=== PATIENT | female | born 1980 | race Caucasian/White ===

== ENCOUNTER 2024-10-20 08:30 | Day surgery (SDC) | payer OTHER, BC ==
[2024-10-07 15:45] VITALS: BP 98/68
[~2024-10-20] VITALS: Ht 160 cm; Wt 71.4 kg
[~2024-10-20 08:30] MED LIST: CALCIUM + D SO1 EACH PO; CEFAZOLIN SODIUM 2 GM/20 ML SYR IV SCH; IBLOOD GLUCOSE TEST STRIP 1 EA TEST VI PRN; LACTATED RINGER'S 1,000 ML IV SCH; LAXA CLEAR1530 GM; LEXAPRO10 MG PO; LIDOCAINE HCL 1% 5 ML SDV INJ ONE; MULTI VITAMIN1 EACH PO; ZEPBOUND5 MG/0.5 M SQ
[2024-10-20 08:38] VITALS: BP 93/64
[2024-10-20] MEDS ORDERED: ondansetron HCL 4 MG/2 ML VIAL ONE (08:41)
[2024-10-20] MEDS ORDERED: LACTATED RINGER'S 1,000 ML IV ONE (08:41)
[2024-10-20] MEDS ORDERED: fentaNYL citrate 100 MCG/2 ML VIAL ONE (08:41)
[2024-10-20] MEDS ORDERED: OMEPRAZOLE20 MG PO (08:41)
[2024-10-20] MEDS ORDERED: FAMOTIDINE 20 MG/ 2 ML VIAL ONE (08:41)
[2024-10-20] MEDS ORDERED: propofoL 200 MG/20 ML VIAL ONE (08:41)
[2024-10-20] MEDS ORDERED: METOCLOPRAMIDE HCL 10 MG/2 ML SDV ONE (08:41)
[2024-10-20] MEDS ORDERED: MIDAZOLAM HCL 2 MG/2 ML VIAL ONE (08:41)
[2024-10-20] MEDS ORDERED: DEXAMETHASONE SOD PHOS 4 MG/ML VIAL ONE (08:41)
[2024-10-20] MEDS ORDERED: KETOROLAC TROMETHAMINE 30 MG/ML VIAL ONE (08:41)
[2024-10-20] MEDS ORDERED: SEVOFLURANE 250 ML BTL INH ONE (08:48)
[2024-10-20] MEDS ORDERED: ePHEDrine sulfate 50 MG/ML AMP ONE (09:30)
[2024-10-20] MEDS ORDERED: ATROPINE SULFATE 1 MG/ML VIAL ONE (09:36)
[2024-10-20] MEDS ORDERED: ACETAMINOPHEN 1,000 MG/100 ML VIAL ONE (09:50)
[2024-10-20] MEDS ORDERED: NALOXONE HCL 0.4 MG SYR IV PRN ×2 (10:00→10:15)
[2024-10-20] MEDS ORDERED: HYDROCODONE/ACETA 5/325 TAB PO PRN (10:00)
--- NOTE | 2024-10-20 10:13 | NUR ---
10/20/24 Nadja Da Silva OXYGEN SATURATION REMAINS 100% ON 10L VIA MASK. OXYGEN IS REMOVED. PATIENT'S TEETH ARE CHATTERING. SHE REPORTS BEING COLD. WARM BLANKET IS GIVEN. KEVON HUGGER ON WARM. PATIENT DENIES PAIN AND NAUSEA.
[2024-10-20] MEDS ORDERED: ondansetron HCL 4 MG/2 ML VIAL IV PRN (10:15)
[2024-10-20] MEDS ORDERED: PROCHLORPERAZINE EDISYLATE 10 MG/2 ML VIAL IV PRN (10:15)
[2024-10-20] MEDS ORDERED: MORPHINE SULFATE 10 MG/ML VIAL IV PRN (10:15)
[2024-10-20] MEDS ORDERED: IBLOOD GLUCOSE TEST STRIP 1 EA TEST VI PRN (10:15)
[2024-10-20] MEDS ORDERED: METOCLOPRAMIDE HCL 10 MG/2 ML SDV IV PRN (10:15)
[2024-10-20] MEDS ORDERED: droPERidol 5 MG/2 ML VIAL IV PRN (10:15)
[2024-10-20] MEDS ORDERED: fentaNYL citrate 50 MCG/ML SDV IV PRN (10:15)
[2024-10-20 10:42] VITALS: BP 99/68
--- NOTE | 2024-10-20 11:09 | NUR ---
1035 PT RETURNS TO FROM PACU. PT AWAKE AND ALERT ASKING FOR WATER. PT TAKING SIPS OF WATER TOLERATES WELL. PT REPORTS PAIN IS VERY MINIMAL STATES ITS 4/10 AND TOLERABLE. PT GIVEN JELLO SHE TOLERATES WELL. PT GIVEN WARM BLANKETS AND CALL LIGHT WITHIN REACH. HER IS AT BEDSIDE. 1110 PT GIVEN REFILL ON WATER AND CRACKERS. SHE DENIES NAUSEA.
[2024-10-20 11:32] VITALS: BP 94/67
--- NOTE | 2024-10-20 11:37 | NUR ---
PT UP TO BATHROOM AMBULTES WITHOUT ASSIST. PT REPORTS LOW BP IS HER BASELINE. PT WAS ABLE TO VOID 500ML OF CLEAR URINE, THERE WAS MINIMAL AMOUT OF BLEEDING THE TOILET. AND SCANT AMOUNT OF BLOOD ON DAE PAD.
--- NOTE | 2024-10-20 12:00 | NUR ---
1130 DISCHARGE INSTRUCTIONS GIVEN TO PT AND BOTH VOICED UNDERSTANDING. PT ABLE TO DRESS HERSELF WITHOUT ASSIST. PT DENIES PAIN AND NAUSEA. PT REPORTS READINESS TO GO HOME. PT WHEELED OUT TO CAR BY RN.
== END 2024-10-20 17:00 | disposition home or self-care (01) ==
LOC: OPS 08:30 → DS 08:30 → OPS 09:50 → DS 09:50 → OPS 17:00
PROVIDERS: ATTEND Obstetrics & Gynecology
PROC: 3E1M38Z Irrigation of Peritoneal Cavity using Irrigating Substance, Percutaneous Approach (ICD-10-PCS; principal; 2024-10-20 09:50)
DX: K28.5 Chronic or unspecified gastrojejunal ulcer with perforation (principal); Z32.02 Encounter for pregnancy test, result negative; Z79.899 Other long term (current) drug therapy; Z87.891 Personal history of nicotine dependence; Z98.84 Bariatric surgery status
CPT/HCPCS: 00952; J0131; J0461; J0690; J1100; J1885; J2250; J2405; J2704; J2765; J3010; J7121

== ENCOUNTER 2024-10-25 17:51 | Inpatient (IN) | payer OTHER, BC ==
[~2024-10-25] VITALS: Ht 160 cm; Wt 71.4 kg
[~2024-10-25 17:51] MED LIST changes: -CEFAZOLIN SODIUM 2 GM/20 ML SYR IV SCH; -IBLOOD GLUCOSE TEST STRIP 1 EA TEST VI PRN; -LACTATED RINGER'S 1,000 ML IV SCH; -LIDOCAINE HCL 1% 5 ML SDV INJ ONE; +OMEPRAZOLE20 MG PO
[2024-10-25] MEDS ORDERED: FAMOTIDINE 20 MG/ 2 ML VIAL IV ONE (20:15)
[2024-10-25] MEDS ORDERED: HYDROmorphone HCL 1 MG/ML SYR IV PRN (20:15)
[2024-10-25] MEDS ORDERED: LIDOCAINE & ANTACID 35 ML BTL PO ONE (20:15)
[2024-10-25] MEDS ORDERED: ondansetron HCL 4 MG/2 ML VIAL IV ONE (20:15)
[2024-10-25 20:41] LABS: BASOPHILS 0.1 % (0-2); EOSINOPHILS 0.2 % (0-6); HEMATOCRIT 40.5 % (35.0-50.0); HEMOGLOBIN 13.9 g/dL (12.0-18.0); LYMPHOCYTES 6.8 % (24-44); MCH 29.2 (27-36); MCHC 34.3 g/dl (30-36); MCV 85.1 fl (81-99); MONOCYTES 3.3 % (0-12); NEUTROPHILS 89.6 % (39-80); PLATELET COUNT 221 K/uL (140-440); RBC 4.76 M/ul (4.3-5.7); RDW 13.9 (10.5-15.0)
[2024-10-25 20:56] LABS: ALBUMIN 4.3 g/dL (3.4-5.0); ALBUMIN/GLOBULIN RATIO 1.34 (1.1-2.4); ANION GAP 10.2 (7-21); BILIRUBIN, TOTAL 0.3 mg/dL (0.2-1.0); BUN/CREATININE RATIO 22.5 (6.0-28.6); CALCIUM 8.9 mg/dL (8.5-10.1); CREATININE, SERUM 0.8 mg/dL (0.55-1.02); POTASSIUM 4.2 mmol/L (3.5-5.1); PROTEIN, TOTAL 7.5 g/dL (6.4-8.2)
[2024-10-25 21:56] LABS: BILIRUBIN, URINE NEGATIVE (negative); BLOOD/HGB, URINE NEGATIVE (Negative); KETONE, URINE NEGATIVE (Negative); LEUK ESTERASE, URINE NEGATIVE (negative); NITRITE, URINE NEGATIVE (negative)
[2024-10-25] MEDS ORDERED: LACTATED RINGER'S 1,000 ML IV SCH (23:00)
[2024-10-25] MEDS ORDERED: PANTOPRAZOLE SODIUM 40 MG/10 ML VIAL IV ONE (23:00)
[2024-10-25] MEDS ORDERED: MEROPENEM 2,000 MG in SODIUM CHLORIDE 0.9% 250 ML IV ONE ×2 (23:15→23:45)
[2024-10-25] MEDS ORDERED: MEROPENEM 1,000 MG VIAL IV ONE ×2 (23:22→23:49)
[2024-10-26] VITALS (15 sets, daily range): BP systolic 91–116; BP diastolic 54–74
[2024-10-26] MEDS ORDERED: BUPIVACAINE HCL 0.25% 50 ML MDV ONE (00:14)
[2024-10-26] MEDS ORDERED: propofoL 200 MG/20 ML VIAL ONE (00:32)
[2024-10-26] MEDS ORDERED: LIDOCAINE HCL 1% 30 ML SDV ONE (00:32)
[2024-10-26] MEDS ORDERED: KETOROLAC TROMETHAMINE 30 MG/ML VIAL ONE (00:32)
[2024-10-26] MEDS ORDERED: SUGAMMADEX SODIUM 200 MG/2 ML ML ONE (00:32)
[2024-10-26] MEDS ORDERED: MIDAZOLAM HCL 2 MG/2 ML VIAL ONE (00:32)
[2024-10-26] MEDS ORDERED: ROCURONIUM BROMIDE 50 MG/5 ML SYR ONE (00:32)
[2024-10-26] MEDS ORDERED: ondansetron HCL 4 MG/2 ML VIAL ONE (00:32)
[2024-10-26] MEDS ORDERED: LIDOCAINE HCL 2% 5 ML SDV ONE (00:32)
[2024-10-26] MEDS ORDERED: DEXAMETHASONE SOD PHOS 4 MG/ML VIAL ONE (00:32)
[2024-10-26] MEDS ORDERED: fentaNYL citrate 100 MCG/2 ML VIAL ONE (00:33)
[2024-10-26] MEDS ORDERED: LACTATED RINGER'S 1,000 ML IV ONE ×2 (00:45→18:30)
[2024-10-26] MEDS ORDERED: ACETAMINOPHEN 1,000 MG/100 ML VIAL ONE (00:46)
[2024-10-26] MEDS ORDERED: KETAMINE in NS 50 MG/5 ML SYR ONE (00:48)
[2024-10-26] MEDS ORDERED: MORPHINE SULFATE 10 MG/ML VIAL IV PRN (03:00)
[2024-10-26] MEDS ORDERED: ondansetron HCL 4 MG/2 ML VIAL IV PRN (03:00)
[2024-10-26] MEDS ORDERED: LACTATED RINGER'S 1,000 ML IV SCH (03:00)
[2024-10-26] MEDS ORDERED: PROCHLORPERAZINE EDISYLATE 10 MG/2 ML VIAL IV PRN (03:00)
--- NOTE | 2024-10-26 03:00 | NUR ---
PT ARRIVES FROM PACU, REPORT RECEIVED FROM CHANELLE CATHERINE. PT IS AWAKE AND ORIENTED, ASKING APPROPRIATE QUESTIONS REGARDING HER SURGERY. SHE DENIES NEED FOR PAIN MEDICATION AT THIS TIME, REPORTS THAT HER NOSE IS HURTING AND THROAT. NGT IN PLACE, ATTACHED TO LIWS WITH RETURN OF SMALL AMOUNT OF RED DRAINAGE. JUAREZ IN PLACE DRAINING LARGE AMOUNT OF S/S FLUID. PTS VS ARE WNL, SHE DENIES SOB OR NAUSEA, CALL LIGHT IN HAND.
--- NOTE | 2024-10-26 03:04 | NUR ---
10/26/24 0304 Lillian Jiang 0245-PT ARRIVES TO PACU VIA STRETCHER, RESTING SEMI FOWLERS, PT REACTIVE TO VERBAL AND TACTILE STIMULI BUT RESTS W/ EYES CLOSED, RR EVEN AND UNLABORED, VSS ON 6L VIA MASK. 0300-PT OPENS EYES TO VOICE, ANSWERS YES OR NO QUESTIONS W/ NODDING OF HEAD, DENIES PAIN OR NAUSEA.
[2024-10-26] MEDS ORDERED: SUCRALFATE 1 GM TAB PT SCH (03:15)
[2024-10-26] MEDS ORDERED: SODIUM CHLORIDE 0.9% 100 ML IV ONE (04:13)
--- NOTE | 2024-10-26 04:35 | NUR ---
IN TO CHECK ON PT, SHE IS AWAKE IN BED AND REPORTS SHE IS NOW HAVING ABD PAIN 01/05. PRN DILAUDID 0.5MG IV GIVEN. PT REPORTS PAIN RELIEF VERY QUICKLY AFTER MED GIVEN AND STATES SHE IS NOW COMFORTABLE. SHE IS ABLE TO HAVE A CONVERSATION AND ANSWER QUESTIONS AND HAS NO FURTHER REQUESTS.
[2024-10-26 05:44] LABS: BASOPHILS 0.1 % (0-2); HEMOGLOBIN 11.3 g/dL (12.0-18.0); LYMPHOCYTES 3.8 % (24-44); MCH 29.1 (27-36); MCHC 34.2 g/dl (30-36); MCV 85.1 fl (81-99); MONOCYTES 2.9 % (0-12); NEUTROPHILS 93.2 % (39-80); PLATELET COUNT 157 K/uL (140-440); RBC 3.88 M/ul (4.3-5.7); RDW 13.9 (10.5-15.0)
[2024-10-26] MEDS ORDERED: MEROPENEM 500 MG in SODIUM CHLORIDE 0.9% 100 ML IV SCH (06:00)
[2024-10-26] MEDS ORDERED: MEROPENEM 1,000 MG in SODIUM CHLORIDE 0.9% 100 ML IV SCH (06:00)
--- NOTE | 2024-10-26 06:00 | NUR ---
IN TO HANG ABX, PT REPORTS SHE IS COMFORTABLE, AWAKENS EASILY. NGT IN PLACE, JUAREZ IN PLACE CONT TO DRAIN S/S FLUID.
--- NOTE | 2024-10-26 07:30 | NUR ---
PT C/O CHEST BURNING, CARAFATE AND OTHER MEDS GIVEN A LITTLE EARLY. PT DOES REPORT IMMEDIATE RELIEF AFTER CARAFATE WAS ADMINISTERED. IN TO SEE PT. PT DENIES ABD PAIN AT THIS TIME.
--- NOTE | 2024-10-26 08:30 | NUR ---
Assessment complete. Patient resting in bed, awakens to voice. Stephen in to round. Patient states pain at 6/10, given IV PRN. NGT in place to LIWS. LSC, on RA. HRR, bowel tones active. lap sites x3, c/d/i with steri strips. Duncan drain noted to have serous fluid, emptied of 25 at this time. Pt educated about post op expectations, agreeable to POC. SCDs in place.
[2024-10-26] MEDS ORDERED: PANTOPRAZOLE SODIUM 40 MG/10 ML VIAL IV SCH (09:00)
[2024-10-26] MEDS ORDERED: FAMOTIDINE 20 MG/ 2 ML VIAL IV SCH (09:00)
--- NOTE | 2024-10-26 09:45 | NUR ---
INTO SEE PATIENT. PATIENT PERSONAL HEALTH INFORMATION REVIEWED. PATIENT JUST RECENTLY SOLD HOUSE AND IS LIVING ON SONS PROPERTY WITH IN A FIFTH WHEEL TRAILER. PATIENT HAS THREE STEPS TO GET INTO AND TWO STEPS IN THE [place] DENIES PROBLEMS GETTING AROUND. DOES NOT USE DME AT HOME. PATIENT DENIES DIFFCULTY PAYING UTLITIES OR OBTAINING FOOD. NO FUTHER CM NEEDS.
--- NOTE | 2024-10-26 11:17 | NUR ---
UR CLINICAL REVIEW: VJ, MEETS INPT FOR UPPER GI BLEED. SURGICAL INTERVENTION, POSITIVE GI BLEED ON CT, IV ANTIBIOTICS, IV ANALGESICS, NG TUBE, NPO, IV FLUIDS [facility] INPT 10/26/2024 @ 0305 ORDER MATCHES REG AUTH PENDING, WILL SEND CLINICALS VIA RIGHTFAX FOR REVIEW DC TO HOME WHEN MEDICALLY STABLE 10/28/2024
--- NOTE | 2024-10-26 12:52 | NUR ---
Patient c/o epigastric pain. This RN encourages to ambulate out of bed. pt tolerates dangling at EOB and standing at bedside for several minutes. VSS. Pt states pain relieved with this action. Encouraged to ambulate further. Pt opts to rest at this time, medicated with IV dilaudid. Pt has low urine output, IVF infusing, MD notified and bolus order received.
[2024-10-26] MEDS ORDERED: LACTATED RINGER'S 500 ML IV SCH (13:00)
--- NOTE | 2024-10-26 13:16 | NUR ---
medications reconciled using pharmacy records and patient interview
--- NOTE | 2024-10-26 13:39 | NUR ---
Pt bolus complete. Carafate slurry administered via NGT, pt tolerates well, and states has no needs at this time, denies pain. Patient daughter at bedside.
--- NOTE | 2024-10-26 14:10 | NUR ---
Patient encouraged to ambulate in hallway. Patient tolerates several laps around CCU department, states epigastic pain relieved with this. NGT back to CONSUELO. VSS, on RA, leonor drain WNL, wilhelm draining small amount yellow urine. Up to chair at this time, tolerating ice chips, no further needs.
--- NOTE | 2024-10-26 14:52 | NUR ---
VISITED DURING SPIRITUAL CARE ROUNDS. PT APPEARED TO BE SLEEPING. DID NOT DISTURB. PROVIDED PRAYER.
--- NOTE | 2024-10-26 15:52 | HP ---
[facility] [address], [place] [address] Signed ADMISSION DATE: 10/25/2024 TIME: 11:45 p.m. PROBLEM: Perforated viscus, probably gastrojejunal anastomotic area. HISTORY OF PRESENT ILLNESS: This 44-year-old woman, presented to the emergency room this evening and thoroughly evaluated by Dr. Abdelrahman Adkins with severe epigastric pain. Emergency room evaluation showed free intraperitoneal air on CT scan, likely related to perforated gastrojejunal anastomosis. Approximately two years ago, at [facility], she underwent a Zoila-en-Y gastric bypass by Dr. Michelle Smith, I believe. She has had epigastric pain since the operation and was maintained on high doses of PPI medication. She has been followed by Charly LOPEZ, who has been "trying to get me off PPI medication" episodically over time. She appeared to be quite dependent on the PPI medication, it is noted. A plan for upper endoscopy to better characterize her problem was planned for November 02, next week, and she was advised to go off her PPI medication for two weeks in advance. This evening, she had severe epigastric pain, unrelenting and presented to the emergency room. She did appear to be hemodynamically stable, but quite obviously with peritoneal findings. Her CT scan was performed, which showed an inflamed marginal ulcer at the gastrojejunal site with evidence of ulcer perforation with pneumoperitoneum and mild to moderate free fluid. She last ate a fajita earlier in the evening. She is admitted for further evaluation and care. PAST MEDICAL HISTORY: Otherwise unremarkable, except for anxiety, for which she takes Lexapro. She notes that she had an endometrial ablation just this past week, which was without any problem or complication. MEDICATIONS: Include only Lexapro (recently stopped PPI medication). Electronically Signed By: DONN ROJAS MD 10/26/24 1552 PATIENT NAME: RICKEY YORK HISTORY AND PHYSICAL DATE OF : 78 REPORT #: [id number] PHYSICIAN: DONN ROJAS MD PCP: RADHA RODRIGUEZ PAC REPORT IS CONFIDENTIAL AND NOT TO BE RELEASED WITHOUT AUTHORIZATION [facility] [address], [place] [address] Signed REVIEW OF SYSTEMS: Denies any shortness of breath or chest pain. She has significant severe epigastric pain, however. SOCIAL HISTORY: She is and accompanied by her at this time. She lives in [place]. 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 PHYSICAL EXAMINATION: GENERAL: A pleasant white woman, who does not look systemically toxic, mildly anxious, but very lucid and obviously intelligent as is her . HEENT: Mucous membranes are slightly moist. Trachea is midline. CHEST: Shows no evidence of tachypnea. HEART: Regular. ABDOMEN: Scaphoid and nondistended at this time. She has marked tenderness in the epigastric area. EXTREMITIES: Show no clubbing, cyanosis, or edema. LABORATORY STUDIES: Show white count of 13.1, hematocrit 40.5, platelets 221,000. Chem profile normal. Creatinine is 0.80, glucose 138. Beta-hCG is negative. Urinalysis is normal. ASSESSMENT: The patient has intraperitoneal air, inflammatory fluid and evidence of a gastrojejunal perforation, which is the most common site for perforated bowel in face of a Zoila-en-Y gastric bypass operation. The operation has been effective. She has lost over 105 pounds, it is noted. I discussed the pathophysiology of the problem with her as well as her and recommend immediate operation. They had initially intended to be cared for at [facility] by their surgery team; emergency room physician did call there and they have no bed availability for at least two days. Discussed with them a plan for laparoscopy and possible repair of the perforation and probable omental patch, though resection reanastomosis may be required. An open procedure may be required too depending on the difficulty and other factors related to the anatomy of the perforation. The risk of bleeding, infection, failure of the repair, need for other indicated procedures and other complications related to the surgery were reviewed in detail. She and her understand and wished to proceed. Electronically Signed By: DONN ROJAS MD 10/26/24 1552 PATIENT NAME: RICKEY YORK HISTORY AND PHYSICAL DATE OF : 78 REPORT #: [id number] PHYSICIAN: DONN ROJAS MD PCP: RADHA RODRIGUEZ PAC REPORT IS CONFIDENTIAL AND NOT TO BE RELEASED WITHOUT AUTHORIZATION [address] [address] Signed Donn Rojas MD JM/MODL /[id number] cc: ATILIO Rivera Dr[facility] Dr. Michelle Driscoll PA-C Copies: ~ Electronically Signed By: DONN ROJAS MD 10/26/24 1552 PATIENT NAME: RICKEY YORK HISTORY AND PHYSICAL DATE OF : 78 REPORT #: [id number] PHYSICIAN: DONN ROJAS MD PCP: RADHA RODRIGUEZ PAC REPORT IS CONFIDENTIAL AND NOT TO BE RELEASED WITHOUT AUTHORIZATION
--- NOTE | 2024-10-26 16:11 | NUR ---
Patient back to bed after being up in chair, this RN to bedside to assist. Pt tolerates ambulation well. States pain improved. Low urine output continues, patient showing no overt signs of fluid overload, lung sounds clear, minimal/trace edema to ankles, SCDs applied. Pt BP improved from being hypotensive in 90/50 range to >100/60. Duncan drain emptied of 70 ml of serous fluid, NGT noted to have drained 200ml, patient is taking oral ice chips for comfort as well. Incisions C/D/I, ABD is soft, slightly tender to palpate, pt states tolerable. No further needs at this time, made plan for further ambulation after rest period.
[2024-10-26] MEDS ORDERED: phenoL 177 ML SPRAY MT PRN (17:45)
[2024-10-26] MEDS ORDERED: SEVOFLURANE 250 ML BTL INH ONE (18:04)
[2024-10-26] MEDS ORDERED: MENTHOL/CETYLPYRD CL 1 LOZ LOZENGE PO PRN (18:30)
--- NOTE | 2024-10-26 18:35 | NUR ---
Velia notified about low UOP, 1L bolus infusing per new order. Pt sitting up to chair after ambulation in hallway and states pain is 5/10, and tolerable at this time, declines interventions. Call light in reach, no further needs.
--- NOTE | 2024-10-26 20:01 | NUR ---
REPORT RECEIVED FROM DORENE FISHER. PATIENT IN CHAIR VISITING WITH FAMILY. ONE PERSON ASSIST WITH LINES AND TUBES BACK TO BED. PATIENT IS AOX3. DENIES NEEDS AT THIS TIME. CALL LIGHT IN REACH.
--- NOTE | 2024-10-26 21:08 | NUR ---
DR. ROJAS UPDATED ON UO. ORDERS RECEIVED FOR AM CBC,BMP AND MAG.
--- NOTE | 2024-10-26 22:15 | NUR ---
PATIENT RESTING WITH EYES CLOSED BUT WAKES TO THIS RN IN ROOM. REPORTS PAIN IMPROVED AFTER PAIN MEDICATION. DENIES NEEDS OR CONCERNS AT THIS TIME. CALL LIGHT IN REACH.
[2024-10-27] VITALS (14 sets, daily range): BP systolic 91–128; BP diastolic 53–74
--- NOTE | 2024-10-27 00:12 | NUR ---
PATIENT WAKES EASILY TO THIS RN IN ROOM. IVF INFUSING WITHOUT DIFFICULTY. ABX HUNG AND INFUSING. PATIENT C/O 6/10 ABDOMINAL PAIN. MEDICATED WITH PRN DILAUDID, PATIENT REPORTED IMPROVEMENT WHILE THIS RN IN ROOM FOR ASSESSMENT. NASREEN DRAIN EMPTIED FOR 50ML SEROUS OUTPUT. TENORIO BAG EMPTIED FOR 60ML DARK YELLOW URINE. NGT PATENT TO LIS. FRESH ICE CHIPS GIVEN. PATIENT DENIES OTHER NEEDS OR CONCERNS. CALL LIGHT IN REACH.
--- NOTE | 2024-10-27 01:27 | NUR ---
REMAINS ON RA. TAKING OFF RT SERVICE. PLEASE CALL WITH CONCERNS OR O2 USE.
--- NOTE | 2024-10-27 02:09 | NUR ---
PATIENT WAKES EASILY TO RN IN ROOM. CARAFATE ADMINISTERED AND NGT CLAMPED AFTER ADMINISTRATION. MINIMAL NGT OUTPUT NOTED IN CANISTER. NEW CANISTER PLACED EARLIER IN THIS SHIFT. OUTPUT IS CLEAR TO RED BUT NO MARLYS BLOOD NOTED. NASREEN DRAIN EMPTIED FOR 30ML AND TENORIO EMPTIED FOR 60ML. FRESH ICE CHIPS GIVEN, PATIENT REPORTS ICE CHIPS HELP NGT DISCOMFORT IN HER THROAT. PATIENT DENIES OTHER NEEDS OR CONCERNS AT THIS TIME. CALL LIGHT IN REACH.
--- NOTE | 2024-10-27 03:30 | NUR ---
PATIENT RESTING IN BED. REPORTS PAIN IS "OK". WARM BLANKET PROVIDED WELL FRESH ICE CHIPS. CALL LIGHT IN REACH.
[2024-10-27 05:36] LABS: BASOPHILS 0.2 % (0-2); EOSINOPHILS 0.4 % (0-6); HEMATOCRIT 32.2 % (35.0-50.0); MCH 29.2 (27-36); MCHC 34.1 g/dl (30-36); MCV 85.7 fl (81-99); MONOCYTES 7.4 % (0-12); PLATELET COUNT 141 K/uL (140-440); RBC 3.76 M/ul (4.3-5.7); RDW 14.1 (10.5-15.0)
--- NOTE | 2024-10-27 05:54 | NUR ---
04:45 RN IN ROOM FOR ASSESSMENT. NASREEN DRAIN INSERTION SITE DRESSING NOTED TO BE SATURATED AND LEAKING NOTED FROM THE DRESSING. THE DRAINAGE HAD NO PARTICULAR ODOR. THE DRAINAGE APPEARED DARK BROWN. THE PATIENT'S GOWN WAS NOTED TO HAVE AN AREA OF SATURATION FROM THE DRAINAGE WELL A SMALL AMOUNT ON THE BLANKET. 05:05 DR. ROJAS NOTIFIED OF DRAINAGE FINDINGS. ORDER RECEIVED TO CLEAN, REDRESS AND HE WILL EVALUATE LATER THIS MORNING. SITE CLEANED AND COVERED WITH SPLIT GAUZE AND ABD PLACED BELOW SITE. SECURED WITH FOAM TAPE. ASSESSMENT CHARTED. TENORIO EMPTIED FOR 100ML LIGHT BE URINE. NASREEN DRAIN OUTPUT 45ML AND NGT OUTPUT 100ML RED COLORED OUTPUT. PATIENT WAS MEDICATED FOR 7/10 PAIN. REINFORCED EDUCATION ON NOTIFYING NURSING STAFF BEFORE PAIN LEVEL GETS TOO HIGH. VERBALIZED UNDERSTANDING. PATIENT CONTINUES TO COMPLAIN OF DISCOMFORT IN HER THROAT FROM NGT BUT FINDS SOME RELIEF WITH ICE AND CLORASEPTIC SPRAY. PATIENT DENIES OTHER NEEDS OR CONCERNS AT THIS TIME. CALL LIGHT IN REACH.
[2024-10-27 05:56] LABS: ANION GAP 9.7 (7-21); BUN/CREATININE RATIO 15.38 (6.0-28.6); CALCIUM 8.3 mg/dL (8.5-10.1); CREATININE, SERUM 0.65 mg/dL (0.55-1.02); MAGNESIUM 1.7 mg/dL (1.8-2.4); POTASSIUM 3.7 mmol/L (3.5-5.1)
--- NOTE | 2024-10-27 06:50 | NUR ---
URINE OUTPUT 50ML OVER THE LAST HOUR. NASREEN DRAIN INSERTION SITE NEW DRESSING APPEARS CDI. NGT OUTPUT OVER THE LAST HOUR WAS 100ML, HOWEVER PATIENT HAS BEEN EATING ICE CHIPS FOR THROAT COMFORT. DENIES NEEDS AT THIS TIME.
--- NOTE | 2024-10-27 07:15 | NUR ---
DR ROJAS HERE, NEW ORDER FOR MG. DRAIN IS WNL PER PT WITH FAMILY IN ROOM. DENIES NEEDS, SCHEDULE XRAY FOR GI STUDY.
--- NOTE | 2024-10-27 10:42 | NUR ---
ALERT AND ORIENTED IN RECLINER. DENIES CM NEEDS AT THIS TIME. WILL DC TO HOME WITH SPOUSE WHEN MEDICALLY STABLE.
--- NOTE | 2024-10-27 11:38 | NUR ---
dr mccarthy here, i/o checked. mg ordered iv, riley drain wnl 60 ml, urine 250 dark, ok to remove wilhelm, removed ngt, pt tollerated. family at side - medicated for pain.
[2024-10-27] MEDS ORDERED: MAGNESIUM SULFATE 2 GM/50 ML BAG IV ONE (11:45)
--- NOTE | 2024-10-27 12:00 | NUR ---
dr baez here, pt and mom sleeping - dr aware of sats and status. no changes - call light in reach.
--- NOTE | 2024-10-27 12:12 | EKG ---
[facility] [address] [facility] [place], [place] [address] Signed Normal sinus rhythm Normal ECG No previous ECGs available Confirmed by Maude Menchaca DO ([id number]) on 10/27/2024 12:12:14 PM Electronically Signed By: MAUDE MENCHACA DO 10/27/24 1212 PATIENT NAME: RICKEY YORK Electrocardiogram DATE OF : 78 PHYSICIAN: MAUDE MENCHACA DO REPORT #: [id number] REPORT IS CONFIDENTIAL AND NOT TO BE RELEASED WITHOUT AUTHORIZATION
--- NOTE | 2024-10-27 12:32 | NUR ---
curtains open wide to sun, pt taught and demonstrated the is up to 750, room air 100%,
--- NOTE | 2024-10-27 14:21 | OR ---
[facility] [address] [place], [place] [address] Signed DATE OF OPERATION: 10/25/2024 SURGEON: Donn Rojas MD PREOPERATIVE DIAGNOSIS: Perforated ulcer gastrojejunal anastomosis (history of laparoscopic gastric bypass 2022 (Dr. Michelle Smith at [facility]). POSTOPERATIVE DIAGNOSIS: Small perforated gastrojejunal anastomotic ulcer. PROCEDURES: 1. Laparoscopy with peritoneal lavage. 2. Laparoscopic closure of perforated ulcer with additional application of omental patch. ANESTHESIA: General endotracheal; Flor Malcolm, TRAFFIC ENGINEERING DIRECTOR and local 10 mL of 0.25% Marcaine with epinephrine. INDICATION: This 44-year-old white woman, lost 105 pounds following a gastric bypass operation performed by Dr. Michelle Smith at [facility]. Since the operation, she has had persistent epigastric pain and treated with PPI medication at high doses. Medication kept the pain at bay. Various attempts were made to wean her or discontinue PPI medication, but in every instance, her pain returned. Her symptoms worsened enough that a plan for upper endoscopy was outlined for November 02. She was advised to discontinue her PPI medication for two weeks in advance of the procedure, which she is now one week off the PPI medication. She presented to Emergency Room in [facility] with severe epigastric pain this evening and a CT scan was performed, which showed free intraperitoneal air consistent with perforation of viscus. The CT scan did describe high probability of perforated gastrojejunal anastomotic ulcer. She has been fluid resuscitated, given broad-spectrum antibiotics, PPI medication and now to undergo laparoscopy with evaluation of the ulcer and if possible, laparoscopic remedy of the perforation. She and her understand the risk of bleeding, infection, need for open procedure and need for other indicated procedures and wished to proceed. Electronically Signed By: DONN ROJAS MD 10/27/24 1421 PATIENT NAME: RICKEY YORK OPERATIVE REPORT DATE OF : 78 REPORT #: [id number] PHYSICIAN: DONN ROJAS MD PCP: RADHA RODRIGUEZ PAC REPORT IS CONFIDENTIAL AND NOT TO BE RELEASED WITHOUT AUTHORIZATION [facility] [address] [place], [place] [address] Signed FINDINGS: Indeed there was a perforation at the gastrojejunal anastomosis. It was quite small overall. There was no sign of ischemic change of the surrounding tissue. Contamination of the peritoneal cavity was relatively localized as prompt operation was undertaken. Remedy of the perforation consisted of closure of the ulcer itself with 0 silk suture, laparoscopically applied as well as an omental patch placed over the closure. Normally, I would do only a Dane patch without closing the defect, but its size and location was such that this approach was considered better. A leak test at conclusion showed no sign of air leak. Fibrin glue was applied at conclusion as was a drain in the area. DESCRIPTION OF PROCEDURE: The patient was brought to the operating room, given a general endotracheal anesthetic. Preoperative antibiotic meropenem had been given. Sequential compression device stockings used and heparin subcutaneously administered. After satisfactory general endotracheal anesthesia, the abdomen was prepared with a chlorhexidine solution and draped sterilely. An infraumbilical incision was made and using an open Quynh cannula technique, pneumoperitoneum achieved to a level of 14 mmHg of carbon dioxide gas. Intra-abdominal inspection showed inflammatory changes to bowel loops in the proximal (upper) abdomen, but no sign of solid food matter or other contaminants otherwise. A 5 mm upper abdominal port was placed allowing for manipulation of the liver edge. This did demonstrate a curdled type material in the area of the infrahepatic (lesser sac) space and with the irrigation, the offending perforation was identified. It was rather small, but was clearly on the stapled line of anastomosis. Irrigation was undertaken to allow cleansing of the peritoneal cavity and the contaminated area. A nasogastric tube was carefully insinuated into position. The operative side was switched to the right side allowing for placement of a two additional 5 mm ports on the right side of the abdomen. Using an 0 silk suture with laparoscopic technique, the perforation was closed securely. Its position in relation to bowel loops was somewhat challenging and simple placement of a Dane patch was considered less optimal under the circumstances. The secured closure of the small perforation was followed by application of an omental patch, additionally secured with 0 silk suture. A nasogastric tube that had been manipulated into position was then insufflated with a syringe type technique with the anastomotic area and repair area submerged in irrigation saline. There was no evidence of leak. Fibrin glue (Tisseel) was additionally applied over this area. To the right-sided trocar site, a 7 mm flat Duncan drain was manipulated into the region as well to monitor postoperatively. It was secured the skin with nylon suture. Irrigation was undertaken. A right-sided 10 mm port was closed with a Flip-Rosalie device to avoid postoperative herniation. The infraumbilical fascial incision was reapproximated with interrupted 0 Vicryl suture. 10 mL of 0.25% Marcaine with epinephrine was injected Electronically Signed By: DONN ROJAS MD 10/27/24 1421 PATIENT NAME: RICKEY YORK OPERATIVE REPORT DATE OF : 78 REPORT #: [id number] PHYSICIAN: DONN ROJAS MD PCP: RADHA RODRIGUEZ PAC REPORT IS CONFIDENTIAL AND NOT TO BE RELEASED WITHOUT AUTHORIZATION [address] [place], [place] [address] Signed locally to the incision sites and skin closed with interrupted 3-0 Vicryl. Steri-Strips were applied. The patient was extubated and transferred to the recovery room in good condition having suffered no complication. Sponge, needle, and counts reported as correct x3. MD KRYSTA Fisher/MONTSERRATL /[id number] cc: JOHN Boone Dr[address] Dr. Copies: ~ Electronically Signed By: DONN ROJAS MD 10/27/24 1421 PATIENT NAME: RICKEY YORK OPERATIVE REPORT DATE OF : 78 REPORT #: [id number] PHYSICIAN: DONN ROJAS MD PCP: RADHA RODRIGUEZ PAC REPORT IS CONFIDENTIAL AND NOT TO BE RELEASED WITHOUT AUTHORIZATION
--- NOTE | 2024-10-27 14:28 | NUR ---
TENORIO CATH REMOVED AFTER DRAIN 150 ML OF YELLOW CLEAR URINE. PT TOLLERATED WELL. JUAREZ WNL - PINK/ORANGE TINGED DRAINAGE NOTED AT 50 ML OUTPUT. PT DENIES NEEDS. CALL LIGHT IN REACH.
--- NOTE | 2024-10-27 16:34 | NUR ---
pt assisted to amb in room, up to sink and brushed hair and teeth, bed bath done. pt to toilet to void missed hat, toilet yellow - qs. pt amb in room and then sat up in chair. hi requested for nausea with movement yet pt holds grandbaby and is smiling and talking with family. call light in reach
--- NOTE | 2024-10-27 17:40 | NUR ---
pt continues to be up in chair and in room, interacting with family - riley wnl, call light in reach.
--- NOTE | 2024-10-27 18:49 | NUR ---
pt has caffine head ache - npo for study in am. offered iv ms or dilaudid - declined and brandyn for ice pack. resting in bed.
--- NOTE | 2024-10-27 19:33 | NUR ---
REPORT RECEIVED FROM MILA Vera RN. PATIENT'S FAMILY WENT HOME FOR THE NIGHT. PATIENT RESTING IN BED WHILE AWAKE. C/O "CAFFEINE" HEADACHE. OTHERWISE DENIES NEEDS AT THIS TIME. CALL LIGHT IN REACH.
--- NOTE | 2024-10-27 19:40 | NUR ---
DR. ROJAS NOTIFIED OF CAFFEINE HEADACHE. ORDER RECEIVED FOR TYLENOL 1G PO Q6H PRN PAIN. PATIENT MAY HAVE COFFEE OR TEA AT THIS TIME.
[2024-10-27] MEDS ORDERED: ACETAMINOPHEN 500 MG TAB PO PRN (19:45)
--- NOTE | 2024-10-27 19:47 | NUR ---
PATIENT UPDATED ON TYLENOL ORDER. DECLINES COFFEE OR TEA BUT WILL TAKE TYLENOL. WARM BLANKET PROVIDED. CALL LIGHT IN REACH.
--- NOTE | 2024-10-27 20:48 | NUR ---
PATIENT MEDICATED WITH PO TYLENOL FOR HEADACHE. REPORTED THAT SHE STARTED TO FEEL RELIEF EVEN BEFORE THIS RN'S ASSESSMENT COMPLETE. LEFT AC IV PULLED FOR SLUGGISH FLUSH AND VERY SMALL AMOUNT OF ERYTHEMA NOTED SUPERIOR TO INSERTION SITE. PLAN OF CARE REVIEWED FOR SHIFT, PATIENT DENIED QUESTIONS OR CONCERNS. SAFETY EDUCATION REVIEWED, CALL LIGHT IN REACH. PATIENT VERBALIZED UNDERSTANDING AND AGREES TO CALL FOR ASSISTANCE OUT OF BED. ASSISTED WITH REPOSITIONING WITH PILLOW SUPPORT FOR COMFORT.
--- NOTE | 2024-10-27 22:10 | NUR ---
BP NOTED TO BE 91/60 (70). PATIENT WAKES EASILY TO RN IN ROOM. PATIENT REPORTS THAT IS HER NORMAL BP. DENIES ANY S/S OF HYPOTENSION. MAP IS 70. INFORMED PATIENT THAT THIS RN WILL CONTINUE TO TREND BP. PT DENIES NEEDS OR CONCERNS. CALL LIGHT IN REACH.
[2024-10-27 23:37] LABS: ANION GAP 10.3 (7-21); CALCIUM 7.8 mg/dL (8.5-10.1); CREATININE, SERUM 0.5 mg/dL (0.55-1.02); MAGNESIUM 1.8 mg/dL (1.8-2.4); POTASSIUM 3.3 mmol/L (3.5-5.1)
[2024-10-27] MEDS ORDERED: POTASSIUM CHLORIDE 10 MEQ/100 ML BAG IV ONE (23:45)
--- NOTE | 2024-10-27 23:48 | NUR ---
PATIENT NOTED TO HAVE A FEW RUNS OF VENTRICULAR ECTOPY BETWEEN [id number]. 23:[address] ROJAS TO UPDATE ON ECTOPY. ORDER RECEIVED TO DRAW A CHEM 7 AND MAGNESIUM LEVEL. ORDER FOR LOW MAGNESIUM TO REPLACE WITH 2GRAM IV MAGNESIUM. ORDER FOR LOW POTASSIUM TO REPLACE WITH POTASSIUM 40MEQ IV. PATIENT UPDATES AND LABS DRAWN. PATIENT OOBTBR TO VOID 700ML CLEAR YELLOW URINE, NASREEN DRAIN EMPTIED FOR 30ML STRAW COLORED OUTPUT. NASREEN DRESSING NOTED TO BE JENNI WITH OLD DRAINAGE. DRESSING CHANGED. GOWN CHANGED FOR COMFORT. TELEMETRY LEADS ALSO REPLACED PATIENT WAS SWEATING IN HER SLEEP. PATIENT REPORTS HER PAIN IS "OK" AND DENIES NEED FOR PAIN MEDICATION. SHE ALSO REPORTS HER HEADACHE IS RESOLVED. PATIENT UNDERSTANDS SHE IS NOW NPO. LABS REVIEWED AND POTASSIUM LEVEL RESULTED AT 3.3. ORDER TO BE PLACED FOR IV K REPLACEMENT.
[2024-10-28] VITALS (14 sets, daily range): BP systolic 92–121; BP diastolic 56–71
[2024-10-28] MEDS ORDERED: POTASSIUM CHLORIDE 10 MEQ/100 ML BAG IV SCH (00:30)
--- NOTE | 2024-10-28 00:38 | NUR ---
IVF, ABX AND POTASSIUM INFUSING AT Y SITE; COMPATIBILITY REVIEWED ON TRISSEL'S AND CONFIRMED WITH TELEPHARMACIST THAT LR, MERREM AND POTASSIUM CHLORIDE ARE ALL Y SITE COMPATIBLE. PATIENT HAS ONE IV SITE; EDUCATION PROVIDED ON SITE CARE AND NOTIFYING NURSING STAFF OF ANY DISCOMFORT WITH IV. PATIENT VERBALIZED UNDERSTANDING AND INFORMED HER I WILL NOT WAKE HER UNLESS I NEED TO, BUT WILL BE IN FREQUENTLY TO CHECK IV SITE. EDUCATION PROVIDED ON POTASSIUM AND LENGTH OF INFUSIONS. DENIES QUESTIONS OR CONCERNS.
--- NOTE | 2024-10-28 01:27 | NUR ---
PATIENT CONTINUES TO REST WITHOUT COMPLAINTS. WAKES EASILY WHEN THIS RN IN ROOM FOR INTERVENTIONS. BAG 2 OF 4 OF 10MEQ IV POTASSIUM HUNG AND INFUSING. SITE CHECKED FOR CONTINUED PATENCY. IV FLUSHED EASILY AND PATIENT DENIES PAIN.
--- NOTE | 2024-10-28 02:36 | NUR ---
BAG 3 OF 4 OF POTASSIUM INFUSING. IV FLUSHED FOR PATENCY AND INFUSIONS RUNNING WITHOUT DIFFICULTY. PATIENT RESTING WITH EYES CLOSED. SPO2 94% ON RA.
--- NOTE | 2024-10-28 03:38 | NUR ---
LAST BAG OF 10MEQ OF POTASSIUM HUNG AND INFUSING WITHOUT DIFFICULTY. NASREEN DRAIN EMPTIED FOR 40ML STRAW COLORED OUTPUT. PATIENT RESTING WITH EYES CLOSED. RESPIRATIONS EVEN AND UNLABORED. PATIENT IS IN SINUS RHYTHM ON MONITOR WITH HR 67. SPO2W 98% ON RA. CALL LIGHT IN REACH.
[2024-10-28 05:28] LABS: BASOPHILS 0.5 % (0-2); EOSINOPHILS 0.9 % (0-6); HEMATOCRIT 34.4 % (35.0-50.0); HEMOGLOBIN 11.7 g/dL (12.0-18.0); LYMPHOCYTES 12.2 % (24-44); MCV 85.3 fl (81-99); MONOCYTES 8.2 % (0-12); NEUTROPHILS 78.2 % (39-80); PLATELET COUNT 127 K/uL (140-440); RBC 4.03 M/ul (4.3-5.7); RDW 13.8 (10.5-15.0)
--- NOTE | 2024-10-28 05:40 | NUR ---
PATIENT WOKE TO RN IN ROOM. OOBTBR TO VOID 700ML. NASREEN DRAIN OUTPUT REMAINS STRAW COLORED; EMPTIED FOR 20ML. PATIENT UP TO SINK TO BRUSH HER TEETH. PATIENT AMBULATED TO CHAIR AFTER BATHROOM. PATIENT REPORTED FEELING TREMULOUS; IN LIGHT OF NPO STATUS, CBG CHECKED AND RESULTED AT 79. ORAL TEMP 101.3. INCENTIVE SPIROMETER GIVEN AND PATIENT DILIGENTLY USING. NEW IV STARTED IN RIGHT AC. LABS SENT. PATIENT REMAINS UP IN CHAIR. REPORTS MILD HEADACHE BUT DECLINES INTERVENTIONS FOR IT. FULL BED LINEN CHANGE COMPLETED. CALL LIGHT IN REACH.
[2024-10-28 05:46] LABS: ALBUMIN 2.8 g/dL (3.4-5.0); ALBUMIN/GLOBULIN RATIO 0.85 (1.1-2.4); ANION GAP 9.2 (7-21); BILIRUBIN, TOTAL 0.5 mg/dL (0.2-1.0); BUN/CREATININE RATIO 8.57 (6.0-28.6); CALCIUM 8.1 mg/dL (8.5-10.1); CREATININE, SERUM 0.7 mg/dL (0.55-1.02); POTASSIUM 4.2 mmol/L (3.5-5.1); PROTEIN, TOTAL 6.1 g/dL (6.4-8.2)
--- NOTE | 2024-10-28 06:44 | NUR ---
PATIENT UP AMBULATING THE LENGTH OF THE UNIT APPROXIMATELY 10X WITH STANDBY ASSIST FOR IV POLE AND MONITOR. TOLERATED ACTIVITY WELL. TEMP HAS COME DOWN WITH IS AN ACTIVITY. CURRENTLY NOW 98.8 ORALLY. PATIENT FAMILY NOW AT BEDSIDE AND PATIENT REMAINS UP TO CHAIR. CALL LIGHT IN REACH. HEART RATE NOTED TO INCREASE TO 115 WITH ACTIVITY BUT WHEN BACK TO REST, HR RANGES FROM 70-80S. SPO2 95% ON RA.
--- NOTE | 2024-10-28 07:45 | NUR ---
REPORT RECIEVED FROM BUSINESS SOLUTION ANALYST RN. PATIENT UP TO CHAIR THIS AM AND FAMILY AT THE BEDSIDE. PATIENT UPDATED ON PLAN OF CARE.
--- NOTE | 2024-10-28 10:15 | NUR ---
PATIENT UP WALKING THE UNIT WITH FAMILY AWAITING IMAGING STUDIES. PATIENT REMAINS NPO. PATIENT WORKED ON IS AND TEMP DOWN TO 98.8 ORAL. PATIENT USING PILLOW TO SUPPORT ABD WHEN NEEDED.
--- NOTE | 2024-10-28 10:41 | NUR ---
UR CONCURRENT REVIEW: MCG-PER MCG REVIEW DOES NOT MEET GL DAY FOR DISCHARGE. REMAINS NPO FOR BOWEL REST. [facility] INPT 10/26/24 ORDER MATCHES REG UPDATED CLINICALS FAXED FOR AUTH REVIEW DISCHARGE TO HOME WHEN STABLE
--- NOTE | 2024-10-28 11:00 | NUR ---
THIS RN WITH PATIENT DOWN TO IMAGING DEPARTMENT TO DO IMAGING STUDY.
--- NOTE | 2024-10-28 11:30 | NUR ---
PATIENT BACK TO ROOM AND MEDICATIONS GIVEN. PATIENT RESTING IN CHAIR AND FAMILY AT THE BEDSIDE. PATIENT JUAREZ HAS SEROUS FLUID PRESENT. VITALS DONE. PATIENT CALLS APPROPRIATELY. NO OTHER NEEDS AT THIS TIME.
--- NOTE | 2024-10-28 11:50 | NUR ---
Spoke with Jody. Several people in the room visiting. She denies needs. States she has been walking as much as possible. Does state concern for steps into her RV. I contacted Dr. Gunn and verbal orders for PT/OT. No other needs at this time from CM.
[2024-10-28] MEDS ORDERED: ESCITALOPRAM OXALATE 10 MG TAB PO SCH (14:29)
--- NOTE | 2024-10-28 14:30 | NUR ---
MD ROJAS IN TO SEE PATIENT AND UPDATED ON JUAREZ DRAIN, SITES, AND IMAGING. PATIENT ADVANCED TO A FULL LIQUID DIET. PATIENT VITALS STABLE. PER MD OWENS TELE AND PATIENT CAN TRANSFER TO THE MEDICAL UNIT. CALL LIGHT IN REACH. PATIENT RESTING IN BED. FAMILY AT THE BEDSIDE.
--- NOTE | 2024-10-28 16:00 | NUR ---
PATIENT UP WALKING WITH FAMILY AND STAFF. PATIENT DENIES PASSING GAS. PATIENT REPORTS SOME PAIN IN ABD. BUT DOES NOT WANT ANY MEDICATION FOR IT AT THIS TIME AND STATES IT IS TOELRABLE. PATIENTS FAMILY HAS BEEN IN AND OUT TODAY.
--- NOTE | 2024-10-28 16:51 | NUR ---
REPORT GIVEN TO JUAN CATHERINE. PATIENT TRANSFERED TO THE MEDICAL UNIT ROOM 112 VIA BED AND BELONGINGS SENT WITH PATIENT. PATIENT INCISIONS VIEWED WITH DORENE MARTINEZ. JUAREZ EMPTIED. ALL QUESTIONS ANSWERED. PATIENT REPORTS HEADACHE HAS BEEN IMPRPOVED SINCE GETTIN A COFFEE DRINK OKAYED PER MD.
--- NOTE | 2024-10-28 16:54 | NUR ---
PATIENT IS IN BED AT THIS TIME, HARD ROCK MINER CHARTED VITALS, GOT FRESH ICE WATER. CALL LIGHT WITH IN REACH AND NOTHING ELSE NEEDED AT THIS TIME.
[2024-10-28] MEDS ORDERED: CALCIUM CARBONATE 500 MG CHEW PO SCH (17:00)
--- NOTE | 2024-10-28 17:24 | NUR ---
Patient to the medical floor. Patient is awake, alert and oriented x4, no acute distress. Patient reports tolerable pain. IV fluids infusing at this time. Personal supplies and call light within reach.
--- NOTE | 2024-10-28 18:47 | NUR ---
PATIENT IS IN BED AT THIS TIME, ENROLLMENT MANAGEMENT COORDINATOR CHARTED I&O'S, FAMILY WITH PATIENT IN ROOM. CALL LIGHT WITH IN REACH AND NOTHING ELSE NEEDED AT THIS TIME.
--- NOTE | 2024-10-28 19:30 | NUR ---
REPORT RECEIVED FROM DORENE MARTINEZ. PATIENT SITTING AT EDGE OF BED WITH FAMILY AT BEDSIDE. PATIENT DENIES ANY NEEDS AT THIS TIME. CALL LIGHT AND PERSONAL BELONGINGS WITHIN REACH.
--- NOTE | 2024-10-28 20:15 | NUR ---
PATIENT UP AND WALKING THE HALLS WITH HER DAUGHTER. PATIENT BACK IN ROOM FOR MEDICATIONS AND TO GET READY FOR BED. PATIENT ASSESSMENT COMPLETED. FRESH ICE WATER AND PUDDING PROVIDED. PATIENT UP TO BATHROOM AND BACK IN BED WITH THIS RN IN THE ROOM. PATIENT REPORTS HAVING A HEADACHE. TYLENOL GIVEN. JUAREZ DRAIN EMPTIED. PATIENT WITHOUT FURTHER NEEDS AT THIS TIME. CALL LIGHT AND PERSONAL BELONGINGS WITHIN REACH.
--- NOTE | 2024-10-28 21:30 | NUR ---
PATIENT RESTING IN BED. SCD PLACED ON PATIENT AND TURNED ON. PATIENT WITHOUT FURTHER NEEDS AT THIS TIME. CALL LIGHT AND PERSONAL BELONGINGS WITHIN REACH.
--- NOTE | 2024-10-28 22:25 | NUR ---
PATIENT RESTING IN BED WITH HER EYES CLOSED. EVEN AND UNLABORED RESPIRATIONS NOTED. PATIENT IS LAYING IN BED WITH HOB ELEVATED. SCD ON. CALL LIGHT AND PERSONAL BELONGINGS WITHIN REACH.
[2024-10-29] VITALS (10 sets, daily range): BP systolic 96–113; BP diastolic 57–71
--- NOTE | 2024-10-29 00:02 | NUR ---
PATIENT RESTING IN BED ON HER BACK WITH HOB ELEVATED AND EYES CLOSED. EVEN AND UNLABORED RESPIRATIONS NOTED. SCD'S ON. CALL LIGHT AND PERSONAL BELONGINGS WITHIN REACH.
--- NOTE | 2024-10-29 02:20 | NUR ---
PATIENT MEDICATED PER EMAR. PATIENT UP TO BATHROOM WHILE THIS RN IN THE ROOM. SCD'S REMOVED SO PATIENT CAN GET UP TO BATHROOM AND THIS RN NOTICED PATIENT BLE HAD MOISTURE. PATIENT BED WAS CHECKED AND WAS WET THROUGHOUT, INCLUDING PILLOW CASES. FRESH LINEN AND GOWN PROVIDED. THIS RN ALSO NOTICED PATIENT WOUND DRESSING WAS SOILED. DRESSING CHANGED AND JUAREZ DRAIN EMPTIED. PATIENT RIGHT ARM STILL WITH 2+ NON PITTING EDEMA; ARM ELEVATED ON PILLOW. PATIENT REQUESTED TO LEAVE SCD'S OFF AT THIS TIME. FRESH WATER PROVIDED. PATIENT WITHOUT FURTHER NEEDS AT THIS TIME. CALL LIGHT AND PERSONAL BELONGINGS WITHIN REACH. TEMP TAKEN AND WAS 98.2 AT THIS TIME.
--- NOTE | 2024-10-29 04:03 | NUR ---
PATIETN RESTING IN BED WITH EYES CLOSED. EVEN AND UNLABORED RESPIRATIONS NOTED. CALL LIGHT AND PERSONAL BELONGINGS WITHIN REACH.
--- NOTE | 2024-10-29 05:39 | NUR ---
BLENDING TANK TENDER OBTAINED VITALS. NO NEW I&O AT THIS TIME. PT STATES NO NEEDS AND CALL LIGHT WITHIN REACH.
--- NOTE | 2024-10-29 06:05 | NUR ---
PATIENT UP TO BATHROOM AT THIS TIME.
--- NOTE | 2024-10-29 06:26 | NUR ---
PATIENT UP AND WALKING HALLS WITH .
--- NOTE | 2024-10-29 06:45 | NUR ---
PATIENT SALINE LOCKED AT THIS TIME. PATIENT IS TAKING PO FLUIDS WELL. PATIENT SITTING UP IN CHAIR VISITING WITH .
--- NOTE | 2024-10-29 07:13 | NUR ---
REPORT RECEIVED FROM SELF PAY COLLECTOR RN COOPER AND ANATOLIY. PATIENT IS SITTING IN THE CHAIR WITH BILATERAL LOWER EXTREMITIES ELEVATED. PATIENT WITH EYES OPEN AND RESPIRATIONS ARE EVEN AND UNLABORED. PATIENT PROVIDED A FRESH CUP OF ICE WATER PER PATIENT REQUEST. PATIENT STATED NO FURTHER NEEDS AT THIS TIME. CALL LIGHT AND PERSONAL BELONGINGS ARE WITHIN REACH.
--- NOTE | 2024-10-29 08:35 | NUR ---
PATIENT IS SITTING IN THE CHAIR WITH BLE ELEVATED. PATIENT DAUGHTER IS SITTING ON THE COUCH. FULL ASSESSMENT COMPLETE AND DOCUMENTED IN THE CHART. PATIENT IS ALERT AND ORIENTED TIMES FOUR. PATIENT IS INDEPENDENT IN THE ROOM. IV FLUSHED WITH 10 ML NORMAL SALINE AND IS SALINE LOCKED. IV DRESSING IS CLEAN, DRY, AND INTACT. PATIENT WITH NO COMPLAINTS OF PAIN. PATIENT IS ON A FULL LIQUID DIET AND BOWEL TONES ARE ACTIVE IN ALL FOUR QUADRANTS. LAP SITES X3 WITH DRY DRAINAGE NOTED ON THEM. JUAREZ DRAIN NOTED IN THE RLQ WITH SEROUS DRAINAGE. JUAREZ DRESSING CHANGED AT THIS TIME. PATIENT IS ON ROOM AIR AND LUNG SOUNDS ARE CLEAR BILATERALLY. CARDIAC WITH NORMAL S1 AND S2 ON AUSCULTATION. RADIAL AND PEDAL PULSES ARE STRONG BILATERALLY. CAPILLARY REFILL IN THE UPPER AND LOWER EXTREMITIES IS LESS THAN 3 SECONDS BILATERALLY. SENSATION INTACT WITH NO COMPLAINTS OF NUMBNESS OR TINGLING. PATIENT WITH DEPENDENT EDEMA NOTED TO THE BILATERAL LOWER EXTREMITIES. PATIENT DAUGHTER REMAINS SITTING ON THE COUCH. 0800 AND 0900 MEDICATIONS ADMINISTERED PER THE EMAR. PATIENT BREAKFAST TRAY SET UP. PATIENT STATED NO FURTHER NEEDS AT THIS TIME. CALL LIGHT AND PERSONAL BELONGINGS ARE WITHIN REACH.
--- NOTE | 2024-10-29 09:21 | NUR ---
PATIENT IS SITTING IN THE CHAIR WITH BILATERAL LOWER EXTREMITIES ELEVATED. BREAKFAST TRAY IS SET UP IN FRONT OF THE PATIENT. PATIENT DAUGHTER IS SITTING ON THE COUCH HOLDING HER BABY. PATIENT STATED NO FURTHER NEEDS AT THIS TIME. CALL LIGHT AND PERSONAL BELONGINGS ARE WITHIN REACH.
--- NOTE | 2024-10-29 10:01 | NUR ---
PATIENT RESTING IN CHAIR WITH DAUGHTER AND AT BEDSIDE. PATIENT STATES SHE IS FEELING BETTER AND READY TO GO HOME. PATIENT WAITING TO SEE WILL DISCHARGE HOME TO [facility] WITH WHEN MEDICALLY CLEARED. NO FUTHER CM NEEDS.
--- NOTE | 2024-10-29 10:24 | NUR ---
PATIENT IS AMBULATING IN THE ROOM INDEPENDENTLY. PATIENT AND DAUGHTER ARE SITTING ON THE COUCH. FRESH CUP OF ICE WATER PROVIDED PER PATIENT REQUEST. PATIENT AND FAMILY STATED NO FURTHER NEEDS AT THIS TIME. CALL LIGHT AND PERSONAL BELONGINGS ARE WITHIN REACH.
[2024-10-29] MEDS ORDERED: ESCITALOPRAM OXALATE 10 MG TAB ONE (10:34)
--- NOTE | 2024-10-29 10:49 | NUR ---
PT NOT AVAILABLE FOR VISIT. PROVIDED PRAYER.
--- NOTE | 2024-10-29 11:09 | NUR ---
JUAREZ DRAIN DRESSING CHANGED AT THIS TIME DUE TO LEAKING. PATIENT TOLERATED WELL. JUAREZ DRAIN EMPTIED OF 30 ML SEROUS FLUID. NEW GOWN IN PLACE. PATIENT WITH AND DAUGHTER SITTING ON THE COUCH AT THIS TIME. PATIENT IS SITTING IN THE RECLINER. PATIENT STATED NO FURTHER NEEDS AT THIS TIME. CALL LIGHT AND PERSONAL BELONGINGS ARE WITHIN REACH.
--- NOTE | 2024-10-29 11:41 | NUR ---
PATIENT IS SITTING UP IN THEIR CHAIR WITH FAMILY IN THE ROOM VISITING. AMBULATED HALLS WITH SBA. BRUSHED THEIR TEETH INDEPENDENTLY. JUAREZ DRAIN WAS LEAKING, DORENE SYED NOTIFIED. CALL LIGHT AND PERSONAL ITEMS ARE WITHIN REACH. NO CARES WERE REQUESTED.
--- NOTE | 2024-10-29 12:06 | NUR ---
PATIENT IS SITTING IN THE CHAIR WITH SEVERAL FAMILY MEMBERS IN THE ROOM. PATIENT WITH EYES OPEN AND RESPIRATIONS ARE EVEN AND UNLABORED. CALL LIGHT AND PERSONAL BELONGINGS ARE WITHIN REACH.
[2024-10-29] MEDS ORDERED: PANTOPRAZOLE SODIUM 40 MG TABEC PO SCH (12:59)
--- NOTE | 2024-10-29 13:00 | NUR ---
PATIENT JUAREZ DRESSING REINFORCED WITH ABD PAD AND TAPE. PATIENT PROVIDED NEW GOWN. PATIENT ASKED THIS RN REGARDING HAVING A SANDWICH SHE STATES SAID SHE COULD HAVE "REGULAR FOOD". THIS RN STATED SHE WOULD LOOK OVER ORDERS AND GIVE HER AN UPDATE. PATIENT EXPRESSED UNDERSTANDING. PATIENT WITH TWO GUESTS SITTING ON THE COUCH AT THIS TIME. PATIENT STATED NO FURTHER NEEDS AT THIS TIME. CALL LIGHT AND PERSONAL BELONGINGS ARE WITHIN REACH.
--- NOTE | 2024-10-29 13:40 | NUR ---
VITAL SIGNS TAKEN AND DOCUMENTED IN THE CHART. THIS RN ORDERED PATIENT AN EGG SALAD SANDWICH DUE TO DIET ORDER BEING ADVANCED TO REGULAR. PATIENT STATED NO FURTHER NEEDS AT THIS TIME. PATIENT IS NOW AMBULATING IN THE HALLWAY INDEPENDENTLY.
--- NOTE | 2024-10-29 13:45 | NUR ---
MD NOTIFIED REGARDING PATIENT IV SITE AND WANTING A SHOWER. MD STATED THE IV CAN COME OUT DUE TO NO MORE IV MEDICATIONS. MD STATED IT IS ALSO GOOD FOR THE PATIENT TO SHOWER AT THIS TIME. MD STATED NO FURTHER ORDERS AT THIS TIME. THIS RN PUT IN A NURSE NOTIFY. CALL ENDED.
--- NOTE | 2024-10-29 14:30 | NUR ---
PATIENT IS SITTING IN THE CHAIR WITH HER SITTING ON THE COUCH. PATIENT WITH NO COMPLAINTS OF PAIN, NAUSEA, OR VOMITING. PATIENT STATES SHE FEELS "6 MONTHS " WHEN SPEAKING ABOUT THE DISTENTION. PATIENT IS ON A REGULAR DIET AND BOWEL TONES ARE ACTIVE IN ALL FOUR QUADRANTS. PATIENT STATED NO FURTHER NEEDS AT THIS TIME. PATIENT IS NOW TAKING A SHOWER. ALEVYN PLACED OVER THE JUAREZ REMOVAL SITE FOR SHOWER. STERI STRIPS REMAIN INTACT. CALL LIGHT AND PERSONAL BELONGINGS ARE WITHIN REACH.
--- NOTE | 2024-10-29 16:11 | NUR ---
PATIENT IS SITTING UPRIGHT IN THE CHAIR WITH BILATERAL LOWER EXTREMITIES ELEVATED. PATIENT IS WITH EYES OPEN AND RESPIRATIONS ARE EVEN AND UNLABORED. PATIENT STATED NO NEEDS AT THIS TIME. CALL LIGHT AND PERSONAL BELONGINGS ARE WITHIN REACH.
--- NOTE | 2024-10-29 18:06 | NUR ---
ORAL TEMPERATURE RECHECKED AND IT WAS 99.3. PATIENT REFUSED TYLENOL AT THIS TIME WHEN OFFERED BY THIS RN. THREE FAMILY MEMBERS ARE IN THE ROOM AT THIS TIME. PATIENT IS SITTING IN THE CHAIR. PATIENT STATED NO FURTHER NEEDS AT THIS TIME. CALL LIGHT AND PERSONAL BELONGINGS ARE WITHIN REACH.
--- NOTE | 2024-10-29 19:16 | NUR ---
REPORT RECEIVED FROM DORENE SYED. PATIENT SITTING AT EDGE OF BED VISITING WITH FAMILY. PATIENT WITHOUT NEEDS AT THIS TIME. CALL LIGHT AND PERSONAL BELONGINGS WITHIN REACH.
--- NOTE | 2024-10-29 20:15 | NUR ---
PATIENT ASSESSMENT COMPLETED. PATIENT IS SITTING UP IN THE CHAIR AT THIS TIME. VS TAKEN AND ARE STABLE. BANDAID WAS PLACED BY DR ROJAS AFTER JUAREZ DRAIN REMOVAL. BANDAID WAS CHANGED BY THIS RN AT THIS TIME DUE TO IT BEING SOILED. INCISION IS WITHOUT S/SX OF INFECTION AT THIS TIME AND NO EXTRA DRAINAGE NOTED AFTER SOILED BANDAID REMOVAL. FRESH ICE WATER PROVIDED TO PATIENT. PATIENT IS AFEBRILE AT THIS TIME. PATIENT WITHOUT FURTHER NEEDS AT THIS TIME. CALL LIGHT AND PERSONAL BELONGINGS WITHIN REACH.
--- NOTE | 2024-10-29 21:45 | NUR ---
PATIENT RESTING IN BED WATCHING TV. PATIENT WITHOUT FURTHER NEEDS AT THIS TIME. CALL LIGHT AND PERSONAL BELONGINGS WITHIN REACH.
--- NOTE | 2024-10-29 23:30 | NUR ---
PATIENT RESTING IN BED WATCHING TV. PATIENT DENIES ANY NEEDS AT THIS TIME. CALL LIGHT AND PERSONAL BELONGINGS WITHIN REACH.
--- NOTE | 2024-10-30 01:37 | NUR ---
PATIENT MEDICATED PER EMAR. PATIENT WITHOUT FURTHER NEEDS AT THIS TIME. CALL LIGHT AND PERSONAL BELONGINGS WITHIN REACH.
--- NOTE | 2024-10-30 03:06 | NUR ---
PATIENT RESTING IN BED WITH EYES CLOSED. EVEN AND UNLABORED RESPIRATION NOTED. CALL LIGHT AND PERSONAL BELONGINGS WITHIN REACH.
--- NOTE | 2024-10-30 04:50 | NUR ---
PATIENT RESTING IN BED WITH HER EYES CLOSED. EVEN AND UNLABORED RESPIRATIONS NOTED. CALL LIGHT AND PERSONAL BELONGINGS WITHIN REACH.
[2024-10-30 05:55] VITALS: BP 97/54
--- NOTE | 2024-10-30 05:58 | NUR ---
RESTORATIVE COORDINATOR OBTAINED VITALS AND I&O. ICE WATER REFILLED. PT STATES NO FURTHER NEEDS AT THIS TIME. CALL LIGHT WITHIN REACH.
--- NOTE | 2024-10-30 07:23 | NUR ---
REPORT RECEIVED FROM DORENE GAMBOA. PATIENT IS UP IN THE RECLINER ON HER PHONE. STATES SHE IS LOOKING FORWARD TO GOING HOME. NO REQUESTS, CALL LIGHT AND PERSONAL BELONGINGS IN REACH.
--- NOTE | 2024-10-30 07:51 | NUR ---
sent prog note for UR yesterday
--- NOTE | 2024-10-30 08:17 | NUR ---
MEDICATION ADMINISTERED, SEE MAR. ASSESSMENT COMPLETE. PATIENT IS SITTING UP IN RECLINER EATING BREAKFAST WITH ON COUCH BESIDE HER. PATIENT HAS NO COMPLAINTS OF PAIN OR DISCOMFORT, ONLY REPORTS SHE IS AWARE OF HER INCISIONS BUT THEY ARE NOT BOTHERING HER. BOWEL TONES ARE ACTIVE IN ALL QUADRANTS, PATIENT REPORTS PASSING GAS. SHE IS MILDLY DISTENDED, SOFT, AND NON-TENDER TO PALPATION. PT HAS MILD EDEMA REMAINING IN HER R HAND WHERE SHE REPORTS HER IV "WENT BAD". PT REPORTS THIS EDEMA IS BETTER THAN YESTERDAY AND SHE CAN NOW MAKE A FULL FIST. SHE HAS BEEN ELEVATING HER HAND WHEN RESTING. R RADIAL PULSE IS 2+ AND STRONG WITH GOOD CAPILLARY REFILL. PT AGAIN EXPRESSES EXCITEMENT ON GOING HOME TODAY, SHE CAN SEE MDs CAR FROM THE WINDOW AND STATES "I'M WAITING FOR HIM TO DRIVE IT OVER HERE SO I CAN GO." PT HAS NO REQUESTS, CALL LIGHT AND PERSONAL BELONGINGS IN REACH.
[2024-10-30 09:33] VITALS: BP 95/55
[2024-10-30 09:40] VITALS: BP 95/55
--- NOTE | 2024-10-30 10:12 | NUR ---
VISITED DURING SPIRITUAL CARE ROUNDS. PT SUPPORTED BY IN ROOM. BOTH IN OVERALL GOOD SPIRITS, TALKED OF PLANNED MOVE AND SUBSEQUENT HOPES FOR NEW HOME, EXPRESSED HOPEFUL ANTICIPATION OF TIME SPENT TOGETHER. TRIPPER PROVIDED SUPPORTIVE PRESENCE, HOSPITALITY, PRAYER. PT AND EXPRESSED GRATITUDE.
--- NOTE | 2024-10-30 11:00 | NUR ---
Spoke with Jody, she is walking in the ramirez. She denies any needs and plans to dc to home with her spouse today.
--- NOTE | 2024-10-30 11:15 | NUR ---
PATIENT SITTING UP IN RECLINER VISITING WITH , NO REQUESTS. CALL LIGHT AND PERSONAL BELONGINGS IN REACH.
[2024-10-30] MEDS ORDERED: ACETAMINOPHEN500 MG PO (12:41)
[2024-10-30] MEDS ORDERED: SUCRALFATE1 GM PT (12:41)
[2024-10-30] MEDS ORDERED: CARAFATE1 GM PO (13:08)
--- NOTE | 2024-11-01 12:32 | DS ---
[facility] [address], [place] [address] Signed ADMISSION DATE: 10/26/2024 DISCHARGE DATE: 10/30/2024 REASON FOR ADMISSION: Perforated gastric ulcer at gastrojejunal anastomosis. HISTORY OF PRESENT ILLNESS: This 44-year-old woman presents to the emergency room, was evaluated by Dr. Adkins, emergency room physician with severe epigastric pain. Emergency room evaluation showed free intraperitoneal air on CT scan, likely related to perforated gastrojejunal anastomosis. Approximately two years ago at [facility], she underwent Zoila-en-Y gastric bypass by Dr. Michelle Smith. She has had epigastric pain since the operation, was maintained on high doses of PPI medication to control symptoms. She has been followed by [facility] who has been trying to wean the patient off PPI medication episodically over time. In every instance in which the PPI medication was discontinued, she had recurrence of her epigastric pain. A plan for upper endoscopy and concurrent colonoscopy was planned for November 02; she was advised to get off the PPI medication for at least two weeks in advance. Unfortunately, she had a bout of severe epigastric pain on the day of admission, which was unrelenting and emergency room evaluation confirms free air and higher probability of perforation in the gastrojejunal anastomosis area. She is admitted for further evaluation and care. PERTINENT PHYSICAL EXAMINATION: GENERAL: Showed a pleasant white woman, not systemically toxic, accompanied by her . She is mildly anxious and very lucid. HEENT: Mucous membranes are slightly moist. Trachea is midline. CHEST: Clear. HEART: Regular without murmur. ABDOMEN: Scaphoid and nondistended. She had marked tenderness in the epigastric area. LABORATORY STUDIES: Showed a white count of 13.1, hematocrit 40.5, platelets 221,000. Chem profile normal. Creatinine 0.8, glucose 138. Beta HCG negative and urinalysis normal. HOSPITAL COURSE: She underwent fluid resuscitation and operation approximately midnight, which confirmed a small perforated ulcer at the gastrojejunal anastomosis. Operation consisted of peritoneal lavage, cleansing the upper abdomen of inflammatory fluid, closure of the perforation and application of an omental patch to that site. A nasogastric tube was placed as well. Leak test was negative. Electronically Signed By: DONN ROJAS MD 11/01/24 1232 PATIENT NAME: RICKEY YORK DISCHARGE SUMMARY DATE OF : 78 REPORT #: [id number] PHYSICIAN: DONN ROJAS MD PCP: RADHA ROBERT PAC REPORT IS CONFIDENTIAL AND NOT TO BE RELEASED WITHOUT AUTHORIZATION [facility] [address] [place] [id number] Signed She was maintained with IV PPI medication, IV H2 rubén and Carafate administered through her nasogastric tube. She had much improvement of her symptoms of epigastric pain of course. On October 28, 2024, she underwent an upper GI after removal of her nasogastric tube affirming no evidence of leakage from the repair site. She advanced her diet from a full liquid to a solid regular diet, which she tolerated well. She was maintained with Carafate orally and PPI medication intravenously. By day of discharge, she is ambulating well, tolerating a regular diet. The drain has been removed and wounds are healing well. She will be maintained on a PPI medication and Carafate. Upper endoscopy will be performed at 4 to 6 weeks following operation as well as concurrent colonoscopy to assure the ulcer is healing well and colonoscopy for screening. She has been prescribed Zepbound for maintenance of her weight loss, but I have asked her to withhold that until we know that the anastomotic ulcer is completely healed. DISCHARGE MEDICATIONS: 1. Will include Tylenol 500 mg two tablets p.o. q.6 hours as needed for pain #30, refill one; and Carafate 1 g p.o. q.6 hours by mouth, #90 refill. 2. She will continue usual medication of Lexapro 10 mg p.o. daily and a calcium carbonate, vitamin D3 and vitamin K chewable tab three tabs daily. She will continue with omeprazole 20 mg b.i.d. until endoscopy is complete and she will withhold the Zepbound medication for the time being. FOLLOWUP PLAN: She is return to see me in approximately four weeks. I am available to her should the need arise sooner of course. She will lift no more than 20 pounds for the next two weeks and is okay to work at her discretion on November 09, 2024. DISCHARGE DIAGNOSES: 1. Perforated ulcer at gastrojejunal anastomosis. 2. History of Zoila-en-Y gastric bypass two years ago [facility]. 3. Anxiety disorder. 4. Morbid obesity (now weight loss of 105 pounds following gastric bypass operation). 5. Status post repair of perforated ulcer and application of omental patch October 26, 2024. Donn Rojas MD Electronically Signed By: DONN ROJAS MD 11/01/24 1232 PATIENT NAME: RICKEY YORK DISCHARGE SUMMARY DATE OF : 78 REPORT #: [id number] PHYSICIAN: DONN ROJAS MD PCP: RADHA ROBERT PAC REPORT IS CONFIDENTIAL AND NOT TO BE RELEASED WITHOUT AUTHORIZATION [address] [place] [address] Signed /HALLE /[phone] cc: Charly Driscoll PA-C [facility] Michelle Smith [facility] Radha Robert PA-C Copies: ~ Electronically Signed By: DONN ROJAS MD 11/01/24 1232 PATIENT NAME: RICKEY YORK DISCHARGE SUMMARY DATE OF : 78 REPORT #: [id number] PHYSICIAN: DONN ROJAS MD PCP: RADHA ROBERT PAC REPORT IS CONFIDENTIAL AND NOT TO BE RELEASED WITHOUT AUTHORIZATION
== END 2024-10-30 13:15 | disposition home or self-care (01) | DRG 328 ==
LOC: ED 17:51 → CCU 17:52 → MS 10-28 16:35
PROVIDERS: Internal Medicine; ADMIT Surgery; ATTEND Surgery
PROC: 0DQ64ZZ Repair Stomach, Percutaneous Endoscopic Approach (ICD-10-PCS; principal; 2024-10-25)
PROC: 3E1M48Z Irrigation of Peritoneal Cavity using Irrigating Substance, Percutaneous Endoscopic Approach (ICD-10-PCS; 2024-10-25)
DX: K28.5 Chronic or unspecified gastrojejunal ulcer with perforation (principal); Z98.84 Bariatric surgery status; F41.9 Anxiety disorder, unspecified; E66.01 Morbid (severe) obesity due to excess calories; K21.9 Gastro-esophageal reflux disease without esophagitis; Z79.899 Other long term (current) drug therapy; Z88.0 Allergy status to penicillin
CPT/HCPCS: 00790; 36415; 74177; 74246; 80048; 80053; 81003; 83690; 83735; 84484; 84703; 85025; 93005; 93010; 96375; 96376; 97161; 99285-25; A9270; J0131; J1100; J1171; J1885; J2003; J2185; J2250; J2405; J2470; J2704; J3010; J3475; J3480; J3490; J7050; J7121; Q9967

== ENCOUNTER 2024-11-26 06:24 | Day surgery (SDC) | payer OTHER, BC ==
[~2024-11-26] VITALS: Ht 165.1 cm; Wt 71.4 kg
[~2024-11-26 06:24] MED LIST changes: +ACETAMINOPHEN500 MG PO; +CARAFATE1 GM PO; +MIDAZOLAM HCL 5 MG/5 ML VIAL IV PRN; +SUCRALFATE1 GM PT; +fentaNYL citrate 100 MCG/2 ML VIAL IV PRN
[2024-11-26 06:39] VITALS: BP 95/59
[2024-11-26] MEDS ORDERED: MULTIPLE VITAM1 EAC2 PO (06:41)
[2024-11-26] MEDS ORDERED: CALCIUM500 MG PO (06:44)
[2024-11-26] MEDS ORDERED: MIDAZOLAM HCL 5 MG/5 ML VIAL ONE (06:47)
[2024-11-26] MEDS ORDERED: fentaNYL citrate 100 MCG/2 ML VIAL ONE (06:47)
[2024-11-26] MEDS ORDERED: LACTATED RINGER'S 1,000 ML IV SCH (07:00)
[2024-11-26] MEDS ORDERED: LIDOCAINE HCL 4% 50 ML BTL TOP SCH (07:00)
[2024-11-26] MEDS ORDERED: LIDOCAINE HCL 1% 5 ML SDV INJ ONE (07:00)
[2024-11-26] MEDS ORDERED: IBLOOD GLUCOSE TEST STRIP 1 EA TEST VI PRN (07:00)
--- NOTE | 2024-11-26 08:06 | NUR ---
11/26/24 0806 Nadja Davise OXYGEN SATURATION IS 100% ON 3L VIA NC. OXYGEN IS DISCONTINUED AT THIS TIME.
--- NOTE | 2024-11-26 08:09 | NUR ---
PT NOT AVAILABLE FOR VISIT. PROVIDED PRAYER.
[2024-11-26 08:31] VITALS: BP 106/82
--- NOTE | 2024-11-26 12:39 | OR ---
[facility] [address], [place] [address] Signed DATE OF OPERATION: 11/26/2024 SURGEON: Donn Rojas MD PREOPERATIVE DIAGNOSES: 1. History of perforated gastric ulcer, history of Zoila-en-Y gastric bypass (Dr. Michelle Smith MD, [facility]). 2. Status post laparoscopic repair of perforated gastrojejunal ulcer with additional omental patch on October 26, 2024 (Dr. Donn Rojas in [place], [place]). POSTOPERATIVE DIAGNOSIS: Persistent ulcer (healing) without associated gastritis or evidence of Helicobacter pylori. PROCEDURE: Esophagogastroduodenoscopy with biopsy. ANESTHESIA: Intravenous sedation fentanyl 100 mcg and Versed 5 mg. INDICATION: This 44-year-old white woman underwent a Zoila-en-Y gastric bypass with very good results of weight loss under the care of Dr. Michelle Smith, [facility] in [place], [place]. She had been followed up in part by JOHN Boone as well. The patient had persistent epigastric pain following operation though she has had weight loss and doing well otherwise. She was essentially PPI dependent for control of her symptoms. Her operation was nearly two years ago at [facility] in [place]. A plan for endoscopy and concurrent colonoscopy was planned for November 02 and she was advised to discontinue her PPI medication at least two weeks in advance. Unfortunately, she had a bout of severe epigastric pain, presented to the emergency room at [facility] and found to have free intraperitoneal air consistent with probable perforated ulcer, which prompted her evaluation and treatment. I performed laparoscopic repair of perforated anastomotic gastrojejunal ulcer by primary closure and application of omental pedicle graft on October 26, 2024. She did well post operatively and an ugi confirmed secure repair of the perforation. Since her discharge, she has been doing quite well. She is on a regimen of PPI (prilosec) bid and carafate po qid. She is asymptomatic having no pain. She has not restarted her GLP1 agonist medication since then. Electronically Signed By: DONN ROJAS MD 11/26/24 1239 PATIENT NAME: RICKEY YORK OPERATIVE REPORT DATE OF : 78 REPORT #: [id number] PHYSICIAN: DONN ROJAS MD PCP: RADHA ROBERT PAC REPORT IS CONFIDENTIAL AND NOT TO BE RELEASED WITHOUT AUTHORIZATION [facility] [address], [place] [address] Signed I have recommended upper endoscopy to assure healing of the ulcer. She was empirically treated for H pylori at her last hospitalization. The patient understands the risk of upper endoscopy including but not limited to bleeding, infection, and perforation and wished to proceed. FINDINGS: The gastric pouch was healthy. Some aminata could be seen from prior surgery and the ulcer itself was visualized and although small was still present. CLOtest was negative for evidence of H pylori. There was no evidence of gastric outlet obstruction. The anastomosis was widely patent. The esophagus appeared normal as well. DESCRIPTION OF PROCEDURE: The patient was brought to the endoscopy suite and placed in lateral decubitus position after undergoing lidocaine hypopharyngeal anesthesia. She was given intravenous sedation with fentanyl and Versed at a point of slurred speech and nystagmus with full cardiopulmonary monitoring. A bite block was placed. An Olympus video upper endoscope was passed in the hypopharynx. The vocal cords appeared normal. Scope was easily passed in the esophagus throughout its length that appeared normal. Scope was passed into the gastric pouch, which appeared to have healthy mucosa. No sign of diffuse gastritis or other abnormality. The gastric jejunal component was widely patent. There was no sign of outlet obstruction. Careful inspection did identify an ulcer associated with some suture that likely represented the repair. The ulcer appeared to be healing well. Direct biopsy of the ulcer was not undertaken. Biopsies were taken of the stomach elsewhere for both SAGRARIO and pathologic testing. Scope was withdrawn and biopsies taken of the distal esophagus and midesophagus as well. Scope was removed and the patient taken to recovery room in good condition. CONCLUDING DIAGNOSIS: Persistent gastrojejunal anastomotic ulceration which is healing. It is persistent, however, an ongoing therapy is additionally needed. There is no evidence of gastric outlet obstruction or diffuse gastritis and certainly no neoplasm. PLAN: We will have her continue with a PPI on a b.i.d. basis at this time as well as Carafate. She can reasonably re-initiate her GLP1 agonist most likely. She should avoid nonsteroidal medications and we will discuss this. I will see her back in the office in six weeks or so. She will continue follow up with her usual physician, Dr. Smith and local provider Radha Robert PA-C as well as her GI PA-C, JOHN Boone. Electronically Signed By: DONN ROJAS MD 11/26/24 1239 PATIENT NAME: RICKEY YORK OPERATIVE REPORT DATE OF : 78 REPORT #: [id number] PHYSICIAN: DONN ROJAS MD PCP: RADHA ROBERT PAC REPORT IS CONFIDENTIAL AND NOT TO BE RELEASED WITHOUT AUTHORIZATION [place] [id number] [place] Alejandro [place], [place] [address] Signed MD KRYSTA Fisher/MONTSERRATL /[id number] cc: Dr. Michelle Smith [place], [place] AT[place]IO MartinezEast [place], [place] JOHN Boone [place], [place] Copies: ~ Electronically Signed By: DONN ROJAS MD 11/26/24 1239 PATIENT NAME: RICKEY YORK OPERATIVE REPORT DATE OF : 78 REPORT #: [id number] PHYSICIAN: DONN ROJAS MD PCP: RADHA ROBERT PAC REPORT IS CONFIDENTIAL AND NOT TO BE RELEASED WITHOUT AUTHORIZATION
--- NOTE | 2024-11-27 15:58 | PATH ---
[facility] [address], [place] [address] Signed SPECIMEN(S): A GASTRIC POUCH BIOPSY SPECIMEN(S): B LOWER ESOPHAGEAL BIOPSY SPECIMEN(S): C MIDDLE ESOPHAGEAL BIOPSY SPECIMEN SOURCE: A. GASTRIC POUCH BIOPSY B. LOWER ESOPHAGEAL BIOPSY C. MIDDLE ESOPHAGEAL BIOPSY CLINICAL HISTORY: S/p gastro-jejunal perf, healing gastric pouch ulcer FINAL PATHOLOGIC DIAGNOSIS: A. Gastric pouch biopsy: - Benign gastric mucosa with focal slight chronic inflammation. - Negative for evidence of Helicobacter organisms on routine HE stained sections. B. Lower esophageal biopsy: - Benign esophageal epithelium, negative for increased epithelial eosinophils. - Negative for glandular mucosa. C. Mid esophageal biopsy: - Benign esophageal epithelium, negative for increased epithelial eosinophils. JVR:[facility] MICROSCOPIC EXAMINATION: Histologic sections of all submitted blocks are examined by light microscopy. These findings, together with the gross examination, support the pathologic diagnosis. GROSS DESCRIPTION: A. The specimen, labeled and designated "York, gastric pouch biopsy," is received in formalin and consists of two dixon soft tissue fragments, ranging from 0.3-0.7 cm. Entirely submitted in (A1). B. The specimen, labeled and designated "York, lower esophageal biopsy," is received in formalin and consists of four dixon soft tissue fragments, ranging from 0.2-0.3 cm. Entirely submitted in (B1). C. The specimen, labeled and designated "York, middle esophageal biopsy," is received in formalin and consists of two dixon soft tissue fragments, ranging from 0.4-0.5 cm. Entirely submitted in (C1). PATIENT NAME: RICKEY YORK PATHOLOGY DATE OF : 78 REPORT #: [id number] PHYSICIAN: AIDA HENSON PCP: RADHA RODRIGUEZ PAC REPORT IS CONFIDENTIAL AND NOT TO BE RELEASED WITHOUT AUTHORIZATION [facility] [address] [place] [facility] [place] [address] Signed VB (under the direct supervision of a pathologist) The Gross Description was prepared using a voice recognition system. The report was reviewed for accuracy; however, sound-alike word errors, addition and/or deletions may occur. If there is any question about this report, please contact Client Services. PERFORMING LABORATORY: Technical component was performed by [employer], [address] [place] [address] (CLIA# [id number]). Professional interpretation was performed by [facility], [address] [place] [id number] (CLIA#: [id number]). Diagnostician: Junior Nichols MD Pathologist Electronically Signed 11/27/2024 Copies: ~ PATIENT NAME: RICKEY YORK PATHOLOGY DATE OF : 78 REPORT #: [id number] PHYSICIAN: AIDA PATHOLOGY PCP: RADHA RODRIGUEZ PAC REPORT IS CONFIDENTIAL AND NOT TO BE RELEASED WITHOUT AUTHORIZATION
== END 2024-11-26 08:43 | disposition home or self-care (01) ==
LOC: OPS 06:24 → DS 06:24 → OPS 07:30 → DS 12:15 → OPS 12:15
PROVIDERS: ATTEND Surgery
PROC: 0DB68ZX Excision of Stomach, Via Natural or Artificial Opening Endoscopic, Diagnostic (ICD-10-PCS; principal; 2024-11-26 07:30)
DX: K29.50 Unspecified chronic gastritis without bleeding (principal); K25.9 Gastric ulcer, unspecified as acute or chronic, without hemorrhage or perforation; Z98.84 Bariatric surgery status; F41.9 Anxiety disorder, unspecified; E66.01 Morbid (severe) obesity due to excess calories; Z88.0 Allergy status to penicillin
CPT/HCPCS: 84703; 88305; G0500; J2250; J3010; J7121

== ENCOUNTER 2025-05-28 06:20 | Day surgery (SDC) | payer OTHER, BC ==
[~2025-05-28] VITALS: Ht 165.1 cm; Wt 57.0 kg
[~2025-05-28 06:20] MED LIST changes: +CALCIUM500 MG PO; +MIRALAX17 GM PO; +MULTIPLE VITAM1 EAC2 PO; +VITAMIN C 500500 M1 PO; +ZEPBOUND15 MG/0.5 SUB-Q
[2025-05-28 06:30] VITALS: BP 89/52
[2025-05-28] MEDS ORDERED: MIDAZOLAM HCL 5 MG/5 ML VIAL ONE (06:57)
[2025-05-28] MEDS ORDERED: fentaNYL citrate 100 MCG/2 ML VIAL ONE (06:57)
[2025-05-28] MEDS ORDERED: LACTATED RINGER'S 1,000 ML IV SCH (07:00)
[2025-05-28] MEDS ORDERED: IBLOOD GLUCOSE TEST STRIP 1 EA TEST VI PRN (07:00)
[2025-05-28] MEDS ORDERED: LIDOCAINE HCL 1% 5 ML SDV INJ ONE (07:00)
[2025-05-28] MEDS ORDERED: LIDOCAINE HCL 4% 50 ML BTL TOP SCH (07:00)
[2025-05-28 09:14] VITALS: BP 98/70
--- NOTE | 2025-05-28 09:39 | NUR ---
05/28/25 0939 Rina Handy 0832 PT ARRIVED TO PACU ON 3L VIA NC. PT DENIES CONCERNS AND IS ENCOURAGED TO PASS GAS. VSS. 0835 O2 TURNED OFF. 0846 MD AT BEDSIDE TALKING TO PT AND HOB INCREASED. 0920 DC INSTRUCTION GIVEN AND ALL QUESTIONS ANSWERED. PT DRESSED HERSELF AND PAPERWORK GIVEN. 0926 PT DC VIA WC TO HER .
--- NOTE | 2025-06-03 12:41 | PATH ---
[facility] [address], [place] [address] Signed SPECIMEN(S): A GASTRIC POUCH BIOPSY SPECIMEN(S): B CECUM COLON POLYP SPECIMEN SOURCE: A. GASTRIC POUCH BIOPSY B. CECUM COLON POLYP CLINICAL HISTORY: No clinical history received. FINAL PATHOLOGIC DIAGNOSIS: A. Gastric pouch, biopsy: - Benign gastric mucosa with no significant abnormality. - Negative for Helicobacter organisms by HE stain. - No ulcer, dysplasia, or intestinal metaplasia identified. B. Cecal colon polyp: - Tubular adenoma. - Negative for high-grade dysplasia or malignancy. [facility] MICROSCOPIC EXAMINATION: Histologic sections of all submitted blocks are examined by light microscopy. These findings, together with the gross examination, support the pathologic diagnosis. Histologic sections of all submitted blocks are examined by light microscopy. These findings, together with the gross examination, support the pathologic diagnosis. GROSS DESCRIPTION: A. The specimen, labeled and designated "York, M, " and designated on the requisition "stomach gastric pouch biopsy," is received in formalin and consists of two dixon soft tissue fragments that measure 0.3 and 0.6 cm in greatest dimension. The specimen is entirely submitted in (A1). B. The specimen, labeled and designated "York, M, " and designated on the requisition "cecum polypectomy," is received in formalin and consists of one dixon soft tissue fragment that is 0.3 cm in greatest dimension. The specimen is entirely submitted in (B1). FB (under the direct supervision of a pathologist) The Gross Description was prepared using a voice recognition system. The report was reviewed for accuracy; however, sound-alike word errors, addition and/or PATIENT NAME: RICKEY YORK PATHOLOGY DATE OF : 78 REPORT #: [id number] PHYSICIAN: AIDA HENSON PCP: RADHA RODRIGUEZ PAC REPORT IS CONFIDENTIAL AND NOT TO BE RELEASED WITHOUT AUTHORIZATION [facility] [address], [place] [address] Signed deletions may occur. If there is any question about this report, please contact Client Services. ADDITIONAL NOTES: Immunohistochemical and/or in situ hybridization studies if performed in this case included appropriate positive controls that reacted as expected. This test was developed and its performance characteristics determined by [employer]. It has not been cleared or approved by the U.S. Food and Drug Administration. The FDA has determined that such clearance or approval is not necessary. This test is used for clinical purposes. It should not be regarded as investigational or for research. [facility] is certified under the Clinical Laboratory Improvement Amendments of 1988 (CLIA) as qualified to perform high complexity clinical laboratory testing. PERFORMING LABORATORY: Technical component was performed by [employer], [address] [place] [id number] (CLIA# [id number]). Professional interpretation was performed by [facility], [address] [place] [phone] (CLIA#: [id number]). Diagnostician: Stu Watson MD Pathologist Electronically Signed 06/03/2025 Copies: ~ PATIENT NAME: RICKEY YORK PATHOLOGY DATE OF : 78 REPORT #: [id number] PHYSICIAN: AIDA PATHOLOGY PCP: RADHA RODRIGUEZ PAC REPORT IS CONFIDENTIAL AND NOT TO BE RELEASED WITHOUT AUTHORIZATION
--- NOTE | 2025-06-10 11:31 | OR ---
[facility] [address], [place] [address] Signed DATE OF OPERATION: 05/28/2025 SURGEON: Donn Rojas MD PREOPERATIVE DIAGNOSIS: Colon screening. POSTOPERATIVE DIAGNOSIS: Small polyp of cecum. PROCEDURE: Total colonoscopy to cecum with cold morcellation polypectomy x1. ANESTHESIA: Intravenous sedation; fentanyl 150 mcg and Versed 7 mg. INDICATION: This 45-year-old woman is a patient of JOHN Martinez and has had no prior colonoscopy and is referred for colon screening. She has no current symptoms of bleeding, diarrhea or constipation and no family history of colon cancer. She understands the risk of bleeding, infection, and perforation related to colonoscopy and wished to proceed. FINDINGS: The prep was good. Complete colonoscopy was undertaken of the cecum. There was a small polyp of the cecum, which was excised with cold morcellation technique. The remaining colon was essentially normal. DESCRIPTION OF PROCEDURE: The patient was brought to the endoscopy suite and placed in the lateral decubitus position, given intravenous sedation to the point of slurred speech and nystagmus. Full cardiopulmonary monitoring was maintained. Digital rectal examination was found to be normal. An Olympus video colonoscope was passed in the rectum and manipulated throughout the colon ultimately intubating the cecum. In the region of the cecum, there was a very small polyp, this was excised with cold morcellation technique. The scope was then withdrawn. Close examination throughout the remaining colon showed no sign of other abnormality. Retroflexed view of the rectum was normal. The scope was removed and the patient was taken to the recovery room in good condition. Electronically Signed By: DONN ROJAS MD 06/10/25 1131 PATIENT NAME: RICKEY YORK OPERATIVE REPORT DATE OF : 78 REPORT #: [id number] PHYSICIAN: DONN ROJAS MD PCP: RADHA RODRIGUEZ PAC REPORT IS CONFIDENTIAL AND NOT TO BE RELEASED WITHOUT AUTHORIZATION [facility] [address], [place] [address] Signed CONCLUDING DIAGNOSIS: Cecal polyp x1. PLAN: Recommend repeat colonoscopy in 10 years or less based on current guidelines. The patient will return to the ongoing care of JOHN Martinez. MD KRYSTA Fisher/MODL /[id number] Copies: ~ Electronically Signed By: DONN ROJAS MD 06/10/25 1131 PATIENT NAME: RICKEY YORK OPERATIVE REPORT DATE OF : 78 REPORT #: [id number] PHYSICIAN: DONN ROJAS MD PCP: RADHA RODRIGUEZ PAC REPORT IS CONFIDENTIAL AND NOT TO BE RELEASED WITHOUT AUTHORIZATION
--- NOTE | 2025-06-23 14:52 | OR ---
[facility] [address] [place] [address], [place] [address] Signed DATE OF OPERATION: 05/28/2025 SURGEON: Donn Rojas MD PREOPERATIVE DIAGNOSIS: History of Zoila-en-Y gastric bypass with a history of gastrojejunal ulcer in August 2024. POSTOPERATIVE DIAGNOSIS: Normal-appearing anatomy. No evidence of recurrent or persistent ulcer. PROCEDURE: Esophagogastroduodenoscopy. ANESTHESIA: Intravenous sedation, fentanyl 100 mcg, Versed 4 mg. INDICATION: This is a pleasant 45-year-old white woman, presented with perforated gastric ulcer at the gastrojejunal anastomotic site following a Zoila-en-Y gastric bypass in the past. She underwent a Dane patch repair and is today to have colonoscopy for screening and upper endoscopy for test of cure regarding repair of the hernia. She understands the risks of bleeding, infection, and perforation related upper endoscopy and colonoscopy and wishes to proceed. FINDINGS: There was no evidence of persistent ulcer. Things had healed completely. She has been on PPI as well as Carafate in the past. PROCEDURE IN DETAIL: The patient was brought to the endoscopy suite and placed in the lateral decubitus position, given intravenous sedation to the point of slurred speech and nystagmus. Full cardiopulmonary monitoring was maintained. An Olympus video colonoscope was obtained, and a bite block was placed. The upper endoscope was passed in the hypopharynx. The vocal cords appeared normal. Scope was advanced to the esophagus, which appeared normal. The gastric pouch, which was small, showed the anastomosis to be widely patent without sign of ulceration or neoplasm. Scope was passed beyond this showing no sign of abnormality. The scope was withdrawn, and retroflexed view was undertaken showing a small hiatal hernia. Scope was then withdrawn and removed, and the patient was taken to the recovery room in good condition. Electronically Signed By: DONN ROJAS MD 06/23/25 1452 PATIENT NAME: RICKEY YORK OPERATIVE REPORT DATE OF : 78 REPORT #: [id number] PHYSICIAN: DONN ROJAS MD PCP: RADHA ROBERT PAC REPORT IS CONFIDENTIAL AND NOT TO BE RELEASED WITHOUT AUTHORIZATION [facility] [address] [place], [place] [address] Signed CONCLUDING DIAGNOSIS: Complete healing of gastrojejunal anastomotic ulcer and in particular much improved compared to upper endoscopy performed postoperative on November 26, 2024. Her initial procedure was in September (October 26, 2024). I would recommend she continue with PPI medication, 20 mg omeprazole daily. Discontinuance of Carafate is certainly acceptable. She will now, therefore, undergo screening colonoscopy based on her age. MD KRYSTA Fisher/MODL /[id number] cc: Radha Robert PA-C Copies: ~ Electronically Signed By: DONN ROJAS MD 06/23/25 1452 PATIENT NAME: RICKEY YORK OPERATIVE REPORT DATE OF : 78 REPORT #: [id number] PHYSICIAN: DONN ROJAS MD PCP: RADHA ROBERT PAC REPORT IS CONFIDENTIAL AND NOT TO BE RELEASED WITHOUT AUTHORIZATION
== END 2025-05-28 09:26 | disposition home or self-care (01) ==
LOC: OPS 06:20 → DS 06:20 → OPS 07:30 → DS 07:30 → OPS 09:26
PROVIDERS: ATTEND Surgery
PROC: 0DBH8ZZ Excision of Cecum, Via Natural or Artificial Opening Endoscopic (ICD-10-PCS; principal; 2025-05-28 07:30)
PROC: 0DB68ZX Excision of Stomach, Via Natural or Artificial Opening Endoscopic, Diagnostic (ICD-10-PCS; 2025-05-28 07:30)
DX: Z12.11 Encounter for screening for malignant neoplasm of colon (principal); D12.0 Benign neoplasm of cecum; K57.30 Diverticulosis of large intestine without perforation or abscess without bleeding; Z98.84 Bariatric surgery status; Z88.0 Allergy status to penicillin; Z79.899 Other long term (current) drug therapy; Z87.19 Personal history of other diseases of the digestive system
CPT/HCPCS: 99153; G0500; J2250; J3010; J7121

== ENCOUNTER 2025-05-31 10:28 | Day surgery (SDC) | payer OTHER, BC ==
[~2025-05-31] VITALS: Ht 160 cm; Wt 57.0 kg
[~2025-05-31 10:28] MED LIST changes: +CEFAZOLIN SODIUM 2 GM in SODIUM CHLORIDE 0.9% 100 ML IV SCH; +IBLOOD GLUCOSE TEST STRIP 1 EA TEST VI PRN; +LACTATED RINGER'S 1,000 ML IV SCH; +LIDOCAINE HCL 1% 5 ML SDV INJ ONE; -MIDAZOLAM HCL 5 MG/5 ML VIAL IV PRN; +MORPHINE SULFATE 4 MG/ML VIAL IV PRN; +OXYCODONE/APAP 5/325 TAB PO PRN; +PHENAZOPYRIDINE HCL 100 MG TAB PO PRN; -fentaNYL citrate 100 MCG/2 ML VIAL IV PRN
[2025-05-31] MEDS ORDERED: LIDOCAINE HCL 2% 5 ML SDV ONE (10:40)
[2025-05-31] MEDS ORDERED: KETOROLAC TROMETHAMINE 30 MG/ML VIAL ONE (10:40)
[2025-05-31 11:15] VITALS: BP 85/56
--- NOTE | 2025-05-31 15:40 | NUR ---
PT ARRIVES TO DS VIA STRETCHER. PT A&O AND RESPONDING TO QUESTIONS APPOPRIATELY. AT BEDSIDE. CALL LIGHT WITHIN REACH. REPORT RECEIVED FROM PEPE CATHERINE.
--- NOTE | 2025-05-31 15:53 | NUR ---
05/31/25 1553 Vale Davis 1430 PT ARRIVED IN PACU SLEEPY. GAUZE IN VAGINAL AREA HAS SMALL AMOUNT OF RED DRAINAGE PRESENT. 1445 SITTING UP IN BED SIPPING ON WATER. C/O FEELING COLD. KEVON HUGGER ON. 1500 C/O URGE TO VOID. UP TO BATHROOM WITH ONE PERSON ASSIST. 1516 BACK IN BED. UNABLE TO VOID. C/O BURNING SENSATION IN VAGINAL AREA. GAUZE REMOVED WITH MINIMAL DRAIANGE NOTED. 1520 PYRIDIUM 200MG GIVEN PO. REFILLED DRINK WITH DIET SPRITE. 1540 TO DS UNTIL ABLE TO VOID. SPOUSE AT BEDSIDE.
--- NOTE | 2025-05-31 16:05 | NUR ---
ANSWERED PT CALL LIGHT. PT STATES URGE TO URINE VOID. THIS RN STANDBY ASSIST TO RESTROOM FOR PT URINE VOID OF 150 ML OF ORANGE TINGED URINE W/SMALL NICKEL SIZED CLOT. PT STATED NO PAIN WITH URINATION. PT BACK TO ROOM AND GETTING DRESSED. CALL LIGHT WITHIN REACH, AT BEDSIDE.
--- NOTE | 2025-05-31 16:15 | NUR ---
IN PT ROOM FOR VS AND DC EDUCATION. PT STATES VERBAL UNDERSTANDING OF DC EDUCATION W/NO FURTHER QUESTIONS AT THIS TIME. PT OFF OF UNIT VIA WC TO PASSENGER SIDE OF 'S VEHICLE BY [employer]. ALL BELONGINGS IN PT POSSESSION. PT STATES NO FURTHER NEEDS AT THIS TIME.
[2025-05-31 16:18] VITALS: BP 95/66
== END 2025-05-31 16:21 | disposition home or self-care (01) ==
LOC: DS 10:28 → OPS 10:28 → DS 11:00 → OPS 11:00
PROVIDERS: ATTEND Urology
PROC: 0TVD8ZZ Restriction of Urethra, Via Natural or Artificial Opening Endoscopic (ICD-10-PCS; principal; 2025-05-31 13:25)
DX: N39.3 Stress incontinence (female) (male) (principal); N36.42 Intrinsic sphincter deficiency (ISD); Z98.84 Bariatric surgery status; Z88.0 Allergy status to penicillin
CPT/HCPCS: 00910; J0688; J1885; J2003; J2405; J2704; J7121; L8606